=== PATIENT | female | born 1990 | race African-American/Black ===

== ENCOUNTER 2016-06-23 08:43 | Emergency (ER) | payer OTHER ==
[~2016-06-23 08:43] MED LIST: /RANI15TA PO; ANUS2.5C2 TOP; DOCU10ELUD PO; IBUP100SUS PO; MOM30SS PO; TYLE325T5 PO
--- NOTE | 2016-06-23 10:19 | EDDOCDS ---
Nurse's Notes [facility] Name: Dawna Bone Age: 26 yrs Sex: Female : 1990 Arrival Date: 06/23/2016 Time: 08:43 Bed Triage 1 Private MD: Diagnosis: Cutaneous abscess of abdominal wall Presentation: 06/23 09:08 Presenting complaint: Patient states: Pain and redness to left lower pelvic area for 4 dwg days. Adult Sepsis Screening: The patient does not have new or worsening altered mentation. Patient's respiratory rate is less than 22. Systolic blood pressure is greater than 100. Patient has a qSOFA score of 0- Negative Sepsis Screen. Suicide/Homicide risk assessment- the patient denies having any suicidal and/or homicidal ideations and does not present with any other emotional, behavioral or mental health complaints. Status: Patient is not a pharmacy services representative or dependent. Transition of care: patient was not received from another setting of care. 09:08 Acuity: ZANDRA Level 4 [facility] 09:08 Method Of Arrival: Walkin/Carried/Asstd dw 09:08 Presenting complaint: Patient states: States boyfriend is admitted at [facility] yesterday dwg with similar symptoms. Triage Assessment: 09:14 General: Appears in no apparent distress. Pain: Pain currently is 9 out of 10 on a pain [facility] scale. HIV screening NA for this visit Offered previously. 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 none - PMHx: none; - PSHx: none; - Social history: Smoking status: Patient states former smoker of tobacco. No barriers to communication noted, The patient speaks fluent Argentine. - Family history: Not pertinent. - : The pt / caregiver states he / she is not on anticoagulants. Home medication list is obtained from the patient. - Exposure Risk Screening:: None identified. Screenin:17 Screening information is obtained from prior medical records. Fall risk: No risks kcs identified. Assistance ADL's: requires no assistance with activities of daily living. Abuse/DV Screen: The patient / caregiver reports he/she is: not in a situation that causes fear, pain or injury. Nutritional screening: No deficits noted. Advance Directives: Currently, there is no health care proxy. home support is adequate. Assessment: 10:15 Reassessment: Patient states symptoms have improved. General: Appears comfortable, well kcs developed, well nourished, well groomed, Behavior is cooperative, pleasant. Pain: Denies pain. Neurological: Level of Consciousness is awake, alert. Respiratory: Airway is patent Respiratory effort is even, unlabored, Respiratory pattern is regular, symmetrical. Derm: Skin is intact, is healthy with good turgor, Skin is dry, Skin is normal. Vital Signs: 09:14 BP 114 / 66; Pulse 90; Resp 16; Temp 96.9(T); Pulse Ox 99% on R/A; Weight 61.23 kg; dwg Height 5 ft. 4 in. (162.56 cm); Pain 910; 09:14 Body Mass Index 23.17 (61.23 kg, 162.56 cm) [facility] Vitals: 09:14 Log In Time: June 23, 2016 at 08:44. [facility] ED Course: 08:45 Patient visited by Nola Bingham. jp5 08:45 Patient moved to Waiting jp5 09:13 Triage Initiated dwg 09:16 Patient moved to Pre RCE dwg 09:51 Chong Silva PA is PHCP. btw 09:51 Eunice Vega MD is Attending Physician. btw 09:51 Patient visited by Chong Silva PA. btw 09:51 Patient moved to Triage 1 dwg 09:59 [facility] Payment Agreement was scanned into [employer] and attached to record. lg 10:00 Assist provider with I & D: Performed by Chong CULP Culture sent to lab. kcs Dressing with Patient tolerated well. 10:02 Abscess Culture & GS - All Others Sent. nb2 10:03 [facility] is Referral Physician. btw 10:15 The patient / caregiver is instructed regarding the plan of care and ED course. kcs 10:15 No IV's were initiated during this patient's visit. kcs Order Results: There are currently no results for this order. Outcome: 10:00 Discharge Assessment: Patient awake, alert and oriented x 3. No cognitive and/or kcs functional deficits noted. Patient verbalized understanding of disposition instructions. Patient awake and alert. patient administered narcotics - no. The following High Risk Discharge criteria are identified: None. Discharged to home ambulatory. Condition: stable. Discharge instructions given to patient, Instructed on discharge instructions, follow up and referral plans. Use of warm compresses to the affected area, Demonstrated understanding of instructions, Pt was receptive of discharge instructions/ teaching. No special radiology studies were completed. Property sent home with patient. 10:04 Discharge ordered by Provider. btw 10:18 Patient left the ED. kcs Signatures: Angelina Hinojosa RN RN kcs Greene, Daniel, RN RN dwg Ganter, LoriLee, Reg Reg lg Wolfenden, Brandon, PA PA btw Nola Bingham jp5 Sonia Calvert2 ROEL
--- NOTE | 2016-06-23 10:19 | EDDOCDS ---
Physician Documentation [facility] Name: Dawna Bone Age: 26 yrs Sex: Female : 1990 Arrival Date: 06/23/2016 Time: 08:43 Bed Triage 1 Private MD: Disposition: 06/23/16 10:04 Discharged to Home/Self Care. Impression: Cutaneous abscess of abdominal wall. - Condition is Stable. - Discharge Instructions: Incision and Drainage, Abscess, [id number]. - Medication Reconciliation, Local Pharmacy Hours form. - Follow up: [facility]; When: Call to arrange an appointment; Reason: Wound/Symptom Recheck, Further diagnostic work-up, Recheck today's complaints, Continuance of care. - Problem is new. - Symptoms have improved. Historical: - Allergies: no known allergies; - Home Meds: 1. none - PMHx: none; - PSHx: none; - Social history: Smoking status: Patient states former smoker of tobacco. No barriers to communication noted, The patient speaks fluent Omani. - Family history: Not pertinent. - : The pt / caregiver states he / she is not on anticoagulants. Home medication list is obtained from the patient. - Exposure Risk Screening:: None identified. 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 4 in. (162.56 cm); Pain 9/10; 09:14 Body Mass Index 23.17 (61.23 kg, 162.56 cm) dw Procedures: 10:04 I & D: Incision and drainage was performed for an abscess of the left lower quadrant btw Prepped with Betadine, Incised with 18 Gauge needle. Drained moderate amount purulent fluid. Cultures obtained. the patient tolerated the procedure poorly. MDM: 09:54 Financial registration complete. lg 09:59 [facility] Payment Agreement was scanned into [employer] and attached to record. lg 10:01 Abscess Culture & GS - All Others Ordered. EDHI Signatures: Dispatcher [employer] Signature EDHI Angelina Hinjoosa RN RN kcs Greene, Daniel, RN RN amadorg Benigno Soni, Reg Reg lg Chong Silva PA PA btw The chart was reviewed and I authenticate all verbal orders and agree with the evaluation and treatment provided.Attachments: [facility] Payment Agreement lg MTDD
--- NOTE | 2016-06-25 11:19 | EDDOCDS ---
Physician Documentation [facility] Name: Dawna Bone Age: 26 yrs Sex: Female : 1990 Arrival Date: 06/23/2016 Time: 08:43 Bed Triage 1 Private MD: Disposition: 06/23/16 10:04 Discharged to Home/Self Care. Impression: Cutaneous abscess of abdominal wall. - Condition is Stable. - Discharge Instructions: Incision and Drainage, Abscess, [id number]. - Medication Reconciliation, Local Pharmacy Hours form. - Follow up: [facility]; When: Call to arrange an appointment; Reason: Wound/Symptom Recheck, Further diagnostic work-up, Recheck today's complaints, Continuance of care. - Problem is new. - Symptoms have improved. Historical: - Allergies: no known allergies; - Home Meds: 1. none - PMHx: none; - PSHx: none; - Social history: Smoking status: Patient states former smoker of tobacco. No barriers to communication noted, The patient speaks fluent Thai. - Family history: Not pertinent. - : The pt / caregiver states he / she is not on anticoagulants. Home medication list is obtained from the patient. - Exposure Risk Screening:: None identified. 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 4 in. (162.56 cm); Pain 9/10; 09:14 Body Mass Index 23.17 (61.23 kg, 162.56 cm) dw Procedures: 10:04 I & D: Incision and drainage was performed for an abscess of the left lower quadrant btw Prepped with Betadine, Incised with 18 Gauge needle. Drained moderate amount purulent fluid. Cultures obtained. the patient tolerated the procedure poorly. MDM: 09:54 Financial registration complete. lg 09:59 [facility] Payment Agreement was scanned into [employer] and attached to record. lg 10:01 Abscess Culture & GS - All Others Ordered. EDMS 15:06 T-Sheet-- Draft Copy was scanned into [employer] and attached to record. gb Signatures: Dispatcher [employer] Angelina Franco, RN RN Adam Horowitz RN RN dwg Lilliana Wallace, Reg Reg gb Benigno Soni, Reg Reg lg Chong Silva PA PA btw The chart was reviewed and I authenticate all verbal orders and agree with the evaluation and treatment provided.Attachments: 09:59 [facility] Payment Agreement lg 15:06 T-Sheet-- Draft Copy gb Chart Complete MTDD
--- NOTE | 2016-06-25 11:19 | EDDOCDS ---
Physician Documentation [facility] Name: Dawna Bone Age: 26 yrs Sex: Female : 1990 Arrival Date: 06/23/2016 Time: 08:43 Bed Triage 1 Private MD: Disposition: 06/23/16 10:04 Discharged to Home/Self Care. Impression: Cutaneous abscess of abdominal wall. - Condition is Stable. - Discharge Instructions: Incision and Drainage, Abscess, [id number]. - Medication Reconciliation, Local Pharmacy Hours form. - Follow up: [facility]; When: Call to arrange an appointment; Reason: Wound/Symptom Recheck, Further diagnostic work-up, Recheck today's complaints, Continuance of care. - Problem is new. - Symptoms have improved. Historical: - Allergies: no known allergies; - Home Meds: 1. none - PMHx: none; - PSHx: none; - Social history: Smoking status: Patient states former smoker of tobacco. No barriers to communication noted, The patient speaks fluent Namibian. - Family history: Not pertinent. - : The pt / caregiver states he / she is not on anticoagulants. Home medication list is obtained from the patient. - Exposure Risk Screening:: None identified. 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 4 in. (162.56 cm); Pain 9/10; 09:14 Body Mass Index 23.17 (61.23 kg, 162.56 cm) dw Procedures: 10:04 I & D: Incision and drainage was performed for an abscess of the left lower quadrant btw Prepped with Betadine, Incised with 18 Gauge needle. Drained moderate amount purulent fluid. Cultures obtained. the patient tolerated the procedure poorly. MDM: 09:54 Financial registration complete. lg 09:59 [facility] Payment Agreement was scanned into [employer] and attached to record. lg 10:01 Abscess Culture & GS - All Others Ordered. EDMS 15:06 T-Sheet-- Draft Copy was scanned into [employer] and attached to record. gb Signatures: Dispatcher [employer] Angelina Franco, RN RN Adam Horowitz RN RN dwg Lilliana Wallace, Reg Reg gb Benigno Soni, Reg Reg lg Chong Silva PA PA btw The chart was reviewed and I authenticate all verbal orders and agree with the evaluation and treatment provided.Attachments: 09:59 [facility] Payment Agreement lg 15:06 T-Sheet-- Draft Copy gb Chart Complete MTDD
--- NOTE | 2016-06-25 11:19 | EDDOCDS ---
Nurse's Notes [facility] Name: Dawna Bone Age: 26 yrs Sex: Female : 1990 Arrival Date: 06/23/2016 Time: 08:43 Bed Triage 1 Private MD: Diagnosis: Cutaneous abscess of abdominal wall Presentation: 06/23 09:08 Presenting complaint: Patient states: Pain and redness to left lower pelvic area for 4 dwg days. Adult Sepsis Screening: The patient does not have new or worsening altered mentation. Patient's respiratory rate is less than 22. Systolic blood pressure is greater than 100. Patient has a qSOFA score of 0- Negative Sepsis Screen. Suicide/Homicide risk assessment- the patient denies having any suicidal and/or homicidal ideations and does not present with any other emotional, behavioral or mental health complaints. Status: Patient is not a commercial hvac service technician or dependent. Transition of care: patient was not received from another setting of care. 09:08 Acuity: ZANDRA Level 4 [facility] 09:08 Method Of Arrival: Walkin/Carried/Asstd dw 09:08 Presenting complaint: Patient states: States boyfriend is admitted at [facility] yesterday dwg with similar symptoms. Triage Assessment: 09:14 General: Appears in no apparent distress. Pain: Pain currently is 9 out of 10 on a pain [facility] scale. HIV screening NA for this visit Offered previously. 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 none - PMHx: none; - PSHx: none; - Social history: Smoking status: Patient states former smoker of tobacco. No barriers to communication noted, The patient speaks fluent Latvian. - Family history: Not pertinent. - : The pt / caregiver states he / she is not on anticoagulants. Home medication list is obtained from the patient. - Exposure Risk Screening:: None identified. Screenin:17 Screening information is obtained from prior medical records. Fall risk: No risks kcs identified. Assistance ADL's: requires no assistance with activities of daily living. Abuse/DV Screen: The patient / caregiver reports he/she is: not in a situation that causes fear, pain or injury. Nutritional screening: No deficits noted. Advance Directives: Currently, there is no health care proxy. home support is adequate. Assessment: 10:15 Reassessment: Patient states symptoms have improved. General: Appears comfortable, well kcs developed, well nourished, well groomed, Behavior is cooperative, pleasant. Pain: Denies pain. Neurological: Level of Consciousness is awake, alert. Respiratory: Airway is patent Respiratory effort is even, unlabored, Respiratory pattern is regular, symmetrical. Derm: Skin is intact, is healthy with good turgor, Skin is dry, Skin is normal. Vital Signs: 09:14 BP 114 / 66; Pulse 90; Resp 16; Temp 96.9(T); Pulse Ox 99% on R/A; Weight 61.23 kg; dwg Height 5 ft. 4 in. (162.56 cm); Pain 910; 09:14 Body Mass Index 23.17 (61.23 kg, 162.56 cm) [facility] Vitals: 09:14 Log In Time: June 23, 2016 at 08:44. [facility] ED Course: 08:45 Patient visited by Nola Bingham. jp5 08:45 Patient moved to Waiting jp5 09:13 Triage Initiated dwg 09:16 Patient moved to Pre RCE dwg 09:51 Chong Silva PA is PHCP. btw 09:51 Eunice Vega MD is Attending Physician. btw 09:51 Patient visited by Chong Silva PA. btw 09:51 Patient moved to Triage 1 dwg 09:59 [facility] Payment Agreement was scanned into [employer] and attached to record. lg 10:00 Assist provider with I & D: Performed by Chong CULP Culture sent to lab. kcs Dressing with Patient tolerated well. 10:02 Abscess Culture & GS - All Others Sent. nb2 10:03 [facility] is Referral Physician. btw 10:15 The patient / caregiver is instructed regarding the plan of care and ED course. kcs 10:15 No IV's were initiated during this patient's visit. kcs 15:06 T-Sheet-- Draft Copy was scanned into [employer] and attached to record. gb Order Results: Lab Order: Abscess Culture & GS - All Others; SPEC'M 06/23/16 09:59 Test: GRAM STAIN; Value: GRAM STAIN RESULT; Status: F Test: GRAM STAIN; Value: MODERATE WBCS; Status: F Test: GRAM STAIN; Value: MODERATE GRAM POSITIVE COCCI IN PAIRS IN CLUSTERS; Status: F Test: ABSCESS CULTURE; Value: <EXTERNAL COMMENT eCWMed> FULL REPORT IN LAB NOTES (eCW and Medent).; Status: F Test: ABSCESS CULTURE; Value: ORGANISM 1: STAPH.AUREUS METHICILLIN RESIS; Status: F Test: ABSCESS CULTURE; Value: STAPH.AUREUS METHICILLIN RESIS; Status: F Test: ABSCESS CULTURE; Value: QUANTITY OF GROWTH HEAVY; Status: F Test: ABSCESS CULTURE; Value: GRAM POS SENSI - VITEK 67; Status: F Test: ABSCESS CULTURE; Value: Method: VIT2; Status: F Test: ABSCESS CULTURE; Value: TETRACYCLINE <=1 S; Status: F Test: ABSCESS CULTURE; Value: PENICILLIN G >=0.5 R; Status: F Test: ABSCESS CULTURE; Value: TRIMETHOPRIM/SULFAMETHOXAZOLE <=10 S; Status: F Test: ABSCESS CULTURE; Value: ERYTHROMYCIN <=0.25 S; Status: F Test: ABSCESS CULTURE; Value: GENTAMICIN <=0.5 S; Status: F Test: ABSCESS CULTURE; Value: CLINDAMYCIN <=0.25 S; Status: F Test: ABSCESS CULTURE; Value: OXACILLIN >=4 R; Status: F Test: ABSCESS CULTURE; Value: VANCOMYCIN 1 S; Status: F Test: ABSCESS CULTURE; Value: LINEZOLID (ZYVOX) 2 S; Status: F Outcome: 10:00 Discharge Assessment: Patient awake, alert and oriented x 3. No cognitive and/or kcs functional deficits noted. Patient verbalized understanding of disposition instructions. Patient awake and alert. patient administered narcotics - no. The following High Risk Discharge criteria are identified: None. Discharged to home ambulatory. Condition: stable. Discharge instructions given to patient, Instructed on discharge instructions, follow up and referral plans. Use of warm compresses to the affected area, Demonstrated understanding of instructions, Pt was receptive of discharge instructions/ teaching. No special radiology studies were completed. Property sent home with patient. 10:04 Discharge ordered by Provider. btw 10:18 Patient left the ED. kcs Signatures: Angelina Hinojosa RN RN kcs Greene, Daniel, RN RN dwg Lilliana Wallace, Reg Reg gb Benigno Soni, Reg Reg lg Chong Silva PA PA btw Nola Bingham Sonia nb2 Chart Complete MTDD
== END 2016-06-23 10:18 | disposition home or self-care (01) ==
LOC: M ED 08:43
DX: L02.211 Cutaneous abscess of abdominal wall (principal); Z87.891 Personal history of nicotine dependence

== ENCOUNTER 2016-06-25 15:19 | Emergency (ER) | payer OTHER ==
--- NOTE | 2016-06-25 16:00 | EDDOCDS ---
Physician Documentation [facility] Name: Dawna Bone Age: 26 yrs Sex: Female : 1990 Arrival Date: 06/25/2016 Time: 15:19 Bed TR8 Private MD: NO PRIMARY PHYSICIAN, . Disposition: 06/25/16 15:47 Discharged to Home/Self Care. Impression: Cutaneous abscess of abdominal wall - MRSA. - Condition is Stable. - Discharge Instructions: Abscess, MRSA Infection, Adult. - Prescriptions for Doxycycline Hyclate 100 mg Oral Tablet - take 1 tablet by ORAL route every 12 hours; 20 tablet. - Medication Reconciliation form. - Follow up: Private Physician; When: Call to arrange an appointment; Reason: Wound/Symptom Recheck, Recheck today's complaints, Worsening of conditions, Continuance of care. - Problem is an ongoing problem. - Symptoms are unchanged. Historical: - Allergies: no known allergies; - Home Meds: 1. none - PMHx: none; - PSHx: none; - Social history: Smoking status: Patient states was never smoker of tobacco. No barriers to communication noted, The patient speaks fluent Belgian, Speaks appropriately for age. - Family history: Not pertinent. - : The pt / caregiver states he / she is not on anticoagulants. Home medication list is obtained from the patient. - Exposure Risk Screening:: None identified. 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 3 in. (160.02 cm); 15:22 Body Mass Index 23.91 (61.23 kg, 160.02 cm) elp MDM: 15:46 Wound Care ordered. cc10 15:55 Financial registration complete. zo Signatures: Sreedhar Wilson RN RN mlb1 Everette Mckay RosemaryRN RN rs3 Diego Payne PA-C PA-C cc10 MTDD
--- NOTE | 2016-06-25 16:00 | EDDOCDS ---
Nurse's Notes [facility] Name: Dawna Bone Age: 26 yrs Sex: Female : 1990 Arrival Date: 06/25/2016 Time: 15:19 Bed TR8 Private MD: NO PRIMARY PHYSICIAN, . Diagnosis: Cutaneous abscess of abdominal wall-MRSA Presentation: 06/25 15:26 Presenting complaint: Patient states: Abscess to left lower abdomen not improving since mlb1 seen here on . Adult Sepsis Screening: The patient does not have new or worsening altered mentation. Patient's respiratory rate is less than 22. Systolic blood pressure is greater than 100. Patient has a qSOFA score of 0- Negative Sepsis Screen. Suicide/Homicide risk assessment- the patient denies having any suicidal and/or homicidal ideations and does not present with any other emotional, behavioral or mental health complaints. 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 Transition of care: patient was not received from another setting of care. 15:26 Acuity: ZANDRA Level 4 mlb1 15:26 Method Of Arrival: Walkin/Carried/Asstd mlb1 Triage Assessment: 15:27 General: Appears in no apparent distress, Behavior is appropriate for age, cooperative. mlb1 Pain: Location: left lower quadrant Pain currently is 3 out of 10 on a pain scale. HIV screening NA for this visit Offered previously. 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 none - PMHx: none; - PSHx: none; - Social history: Smoking status: Patient states was never smoker of tobacco. No barriers to communication noted, The patient speaks fluent Somali, Speaks appropriately for age. - Family history: Not pertinent. - : The pt / caregiver states he / she is not on anticoagulants. Home medication list is obtained from the patient. - Exposure Risk Screening:: None identified. Screenin:26 Infection Control. mlb1 15:55 Screening information is obtained from the patient. Fall risk: No risks identified. rs3 Assistance ADL's: requires no assistance with activities of daily living. Abuse/DV Screen: The patient / caregiver reports he/she is: not in a situation that causes fear, pain or injury. Nutritional screening: No deficits noted. Advance Directives: Currently, there is no health care proxy. There is no active DNR order. home support is adequate. Vital Signs: 15:22 BP 122 / 69; Pulse 95; Resp 18; Temp 98.6; Pulse Ox 100% ; Weight 61.23 kg; Height 5 elp ft. 3 in. (160.02 cm); 15:22 Body Mass Index 23.91 (61.23 kg, 160.02 cm) elp Vitals: 15:22 Log In Time: June 25, 2016 at 15:20. elp ED Course: 15:20 Patient visited by Sheila Francois PCA. elp 15:20 NO PRIMARY PHYSICIAN, . is Private Physician. elp 15:20 Patient moved to Waiting elp 15:22 Patient moved to Pre RCE elp 15:23 Patient visited by Sheila Francois PCA. elp 15:27 Triage Initiated mlb1 15:31 Patient moved to Triage 1 ck1 15:40 [facility] cc10 15:40 María Farmer MD is Attending Physician. cc10 15:40 Patient visited by Diego Payne PA-C. cc10 15:40 Patient visited by Diego Payne PA-C. cc10 15:55 Patient moved to TR8 rs3 15:58 No IV's were initiated during this patient's visit. No procedures done that require rs3 assistance. 15:59 The patient / caregiver is instructed regarding the plan of care and ED course. rs3 Order Results: There are currently no results for this order. Outcome: 15:47 Discharge ordered by Provider. cc10 15:58 Discharge Assessment: patient administered narcotics - no. The following High Risk rs3 Discharge criteria are identified: None. Discharged to home ambulatory. Condition: stable. Discharge instructions given to patient, Instructed on discharge instructions, follow up and referral plans. medication usage, Demonstrated understanding of instructions, medications, Pt was receptive of discharge instructions/ teaching. Prescriptions given X 1. CT Study completed. Property :Personal belongings accompany Pt. 15:59 Patient left the ED. rs3 Signatures: Sreedhar Wilson RN RN mlb1 Liz Martinez RN RN ck1 Althea Agudelo RN RN rs3 Patchen, Sheila, COMMUTATOR TESTER COMMUTATOR TESTER elp Coniski, Diego, PA-C PA-C cc10 MTDD
--- NOTE | 2016-06-27 16:59 | EDDOCDS ---
Physician Documentation [facility] Name: Dawna Bone Age: 26 yrs Sex: Female : 1990 Arrival Date: 06/25/2016 Time: 15:19 Bed TR8 Private MD: NO PRIMARY PHYSICIAN, . Disposition: 06/25/16 15:47 Discharged to Home/Self Care. Impression: Cutaneous abscess of abdominal wall - MRSA. - Condition is Stable. - Discharge Instructions: Abscess, MRSA Infection, Adult. - Prescriptions for Doxycycline Hyclate 100 mg Oral Tablet - take 1 tablet by ORAL route every 12 hours; 20 tablet. - Medication Reconciliation form. - Follow up: Private Physician; When: Call to arrange an appointment; Reason: Wound/Symptom Recheck, Recheck today's complaints, Worsening of conditions, Continuance of care. - Problem is an ongoing problem. - Symptoms are unchanged. Historical: - Allergies: no known allergies; - Home Meds: 1. none - PMHx: none; - PSHx: none; - Social history: Smoking status: Patient states was never smoker of tobacco. No barriers to communication noted, The patient speaks fluent Ecuadorean, Speaks appropriately for age. - Family history: Not pertinent. - : The pt / caregiver states he / she is not on anticoagulants. Home medication list is obtained from the patient. - Exposure Risk Screening:: None identified. 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 3 in. (160.02 cm); 15:22 Body Mass Index 23.91 (61.23 kg, 160.02 cm) elp MDM: 15:46 Wound Care ordered. cc10 15:55 Financial registration complete. zo 16:00 [facility] Payment Agreement was scanned into [employer] and attached to record. zo 06/26 20:57 T-Sheet-- Draft Copy was scanned into [employer] and attached to record. klr Signatures: Sreedhar Wilson RN RN mlb1 Everette Mckay Rosemary, RN RN rs3 Diego Payne PA-C PAVikC cc10 Miranda Feliciano The chart was reviewed and I authenticate all verbal orders and agree with the evaluation and treatment provided.Attachments: 06/25 16:00 [facility] Payment Agreement zo 06/26 20:57 T-Sheet-- Draft Copy eduardor Chart Complete MTDD
--- NOTE | 2016-06-27 17:00 | EDDOCDS ---
Physician Documentation [facility] Name: Dawna Bone Age: 26 yrs Sex: Female : 1990 Arrival Date: 06/25/2016 Time: 15:19 Bed TR8 Private MD: NO PRIMARY PHYSICIAN, . Disposition: 06/25/16 15:47 Discharged to Home/Self Care. Impression: Cutaneous abscess of abdominal wall - MRSA. - Condition is Stable. - Discharge Instructions: Abscess, MRSA Infection, Adult. - Prescriptions for Doxycycline Hyclate 100 mg Oral Tablet - take 1 tablet by ORAL route every 12 hours; 20 tablet. - Medication Reconciliation form. - Follow up: Private Physician; When: Call to arrange an appointment; Reason: Wound/Symptom Recheck, Recheck today's complaints, Worsening of conditions, Continuance of care. - Problem is an ongoing problem. - Symptoms are unchanged. Historical: - Allergies: no known allergies; - Home Meds: 1. none - PMHx: none; - PSHx: none; - Social history: Smoking status: Patient states was never smoker of tobacco. No barriers to communication noted, The patient speaks fluent American, Speaks appropriately for age. - Family history: Not pertinent. - : The pt / caregiver states he / she is not on anticoagulants. Home medication list is obtained from the patient. - Exposure Risk Screening:: None identified. 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 3 in. (160.02 cm); 15:22 Body Mass Index 23.91 (61.23 kg, 160.02 cm) elp MDM: 15:46 Wound Care ordered. cc10 15:55 Financial registration complete. zo 16:00 [facility] Payment Agreement was scanned into [employer] and attached to record. zo 06/26 20:57 T-Sheet-- Draft Copy was scanned into [employer] and attached to record. klr Signatures: Sreedhar Wilson RN RN mlb1 Everette Mckay Rosemary, RN RN rs3 Diego Payne PA-C PAVikC cc10 Miranda Feliciano The chart was reviewed and I authenticate all verbal orders and agree with the evaluation and treatment provided.Attachments: 06/25 16:00 [facility] [place] Payment Agreement zo 06/26 20:57 T-Sheet-- Draft Copy eduardor Chart Complete MTDD
--- NOTE | 2016-06-27 17:00 | EDDOCDS ---
Nurse's Notes [facility] Name: Dawna Bone Age: 26 yrs Sex: Female : 1990 Arrival Date: 06/25/2016 Time: 15:19 Bed TR8 Private MD: NO PRIMARY PHYSICIAN, . Diagnosis: Cutaneous abscess of abdominal wall-MRSA Presentation: 06/25 15:26 Presenting complaint: Patient states: Abscess to left lower abdomen not improving since mlb1 seen here on . Adult Sepsis Screening: The patient does not have new or worsening altered mentation. Patient's respiratory rate is less than 22. Systolic blood pressure is greater than 100. Patient has a qSOFA score of 0- Negative Sepsis Screen. Suicide/Homicide risk assessment- the patient denies having any suicidal and/or homicidal ideations and does not present with any other emotional, behavioral or mental health complaints. Status: Patient is not a servicer travel trailers or dependent. Transition of care: patient was not received from another setting of care. 15:26 Acuity: ZANDRA Level 4 mlb1 15:26 Method Of Arrival: Walkin/Carried/Asstd mlb1 Triage Assessment: 15:27 General: Appears in no apparent distress, Behavior is appropriate for age, cooperative. mlb1 Pain: Location: left lower quadrant Pain currently is 3 out of 10 on a pain scale. HIV screening NA for this visit Offered previously. 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 none - PMHx: none; - PSHx: none; - Social history: Smoking status: Patient states was never smoker of tobacco. No barriers to communication noted, The patient speaks fluent [place], Speaks appropriately for age. - Family history: Not pertinent. - : The pt / caregiver states he / she is not on anticoagulants. Home medication list is obtained from the patient. - Exposure Risk Screening:: None identified. Screenin:26 Infection Control. mlb1 15:55 Screening information is obtained from the patient. Fall risk: No risks identified. rs3 Assistance ADL's: requires no assistance with activities of daily living. Abuse/DV Screen: The patient / caregiver reports he/she is: not in a situation that causes fear, pain or injury. Nutritional screening: No deficits noted. Advance Directives: Currently, there is no health care proxy. There is no active DNR order. home support is adequate. Vital Signs: 15:22 BP 122 / 69; Pulse 95; Resp 18; Temp 98.6; Pulse Ox 100% ; Weight 61.23 kg; Height 5 elp ft. 3 in. (160.02 cm); 15:22 Body Mass Index 23.91 (61.23 kg, 160.02 cm) elp Vitals: 15:22 Log In Time: June 25, 2016 at 15:20. elp ED Course: 15:20 Patient visited by Sheila Francois PCA. elp 15:20 NO PRIMARY PHYSICIAN, . is Private Physician. elp 15:20 Patient moved to Waiting elp 15:22 Patient moved to Pre RCE elp 15:23 Patient visited by Sheila Francois PCA. elp 15:27 Triage Initiated mlb1 15:31 Patient moved to Triage 1 ck1 15:40 Diego [facility]. cc10 15:40 María Farmer MD is Attending Physician. cc10 15:40 Patient visited by Diego Payne PA-C. cc10 15:40 Patient visited by Diego Payne PA-C. cc10 15:55 Patient moved to TR8 rs3 15:58 No IV's were initiated during this patient's visit. No procedures done that require rs3 assistance. 15:59 The patient / caregiver is instructed regarding the plan of care and ED course. rs3 16:00 [facility] Payment Agreement was scanned into [employer] and attached to record. zo 06/26 20:57 T-Sheet-- Draft Copy was scanned into [employer] and attached to record. klr Order Results: There are currently no results for this order. Outcome: 06/25 15:47 Discharge ordered by Provider. cc10 15:58 Discharge Assessment: patient administered narcotics - no. The following High Risk rs3 Discharge criteria are identified: None. Discharged to home ambulatory. Condition: stable. Discharge instructions given to patient, Instructed on discharge instructions, follow up and referral plans. medication usage, Demonstrated understanding of instructions, medications, Pt was receptive of discharge instructions/ teaching. Prescriptions given X 1. CT Study completed. Property :Personal belongings accompany Pt. 15:59 Patient left the ED. rs3 Signatures: Sreedhar Wilson RN RN mlb1 Liz MartinezRN RN ck1 Everette Mckay RosemaryRN RN rs3 Sheila Francois, WALDO EDI DEVELOPER elp Diego Payne, PA-C PA-C cc10 Miranda Feliciano Chart Complete MTDD
--- NOTE | 2016-06-28 10:34 | EDDOCDS ---
Physician Documentation [facility] Name: Dawna Bone Age: 26 yrs Sex: Female : 1990 Arrival Date: 06/25/2016 Time: 15:19 Bed TR8 Private MD: NO PRIMARY PHYSICIAN, . Disposition: 06/25/16 15:47 Discharged to Home/Self Care. Impression: Cutaneous abscess of abdominal wall - MRSA. - Condition is Stable. - Discharge Instructions: Abscess, MRSA Infection, Adult. - Prescriptions for Doxycycline Hyclate 100 mg Oral Tablet - take 1 tablet by ORAL route every 12 hours; 20 tablet. - Medication Reconciliation form. - Follow up: Private Physician; When: Call to arrange an appointment; Reason: Wound/Symptom Recheck, Recheck today's complaints, Worsening of conditions, Continuance of care. - Problem is an ongoing problem. - Symptoms are unchanged. Historical: - Allergies: no known allergies; - Home Meds: 1. none - PMHx: none; - PSHx: none; - Social history: Smoking status: Patient states was never smoker of tobacco. No barriers to communication noted, The patient speaks fluent Brazilian, Speaks appropriately for age. - Family history: Not pertinent. - : The pt / caregiver states he / she is not on anticoagulants. Home medication list is obtained from the patient. - Exposure Risk Screening:: None identified. 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 3 in. (160.02 cm); 15:22 Body Mass Index 23.91 (61.23 kg, 160.02 cm) elp MDM: 15:46 Wound Care ordered. cc10 15:55 Financial registration complete. zo 16:00 [facility] Payment Agreement was scanned into [employer] and attached to record. zo 06/26 20:57 T-Sheet-- Draft Copy was scanned into [employer] and attached to record. klr Signatures: Sreedhar Wilson RN RN mlb1 Everette Mckay Rosemary, RN RN rs3 Diego Payne PA-C PAVikC cc10 Miranda Feliciano The chart was reviewed and I authenticate all verbal orders and agree with the evaluation and treatment provided.Attachments: 06/25 16:00 [facility] Payment Agreement zo 06/26 20:57 T-Sheet-- Draft Copy eduardor MTDD
--- NOTE | 2016-06-28 10:34 | EDDOCDS ---
Nurse's Notes [facility] Name: Dawna Bone Age: 26 yrs Sex: Female : 1990 Arrival Date: 06/25/2016 Time: 15:19 Bed TR8 Private MD: NO PRIMARY PHYSICIAN, . Diagnosis: Cutaneous abscess of abdominal wall-MRSA Presentation: 06/25 15:26 Presenting complaint: Patient states: Abscess to left lower abdomen not improving since mlb1 seen here on . Adult Sepsis Screening: The patient does not have new or worsening altered mentation. Patient's respiratory rate is less than 22. Systolic blood pressure is greater than 100. Patient has a qSOFA score of 0- Negative Sepsis Screen. Suicide/Homicide risk assessment- the patient denies having any suicidal and/or homicidal ideations and does not present with any other emotional, behavioral or mental health complaints. 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 Transition of care: patient was not received from another setting of care. 15:26 Acuity: ZANDRA Level 4 mlb1 15:26 Method Of Arrival: Walkin/Carried/Asstd mlb1 Triage Assessment: 15:27 General: Appears in no apparent distress, Behavior is appropriate for age, cooperative. mlb1 Pain: Location: left lower quadrant Pain currently is 3 out of 10 on a pain scale. HIV screening NA for this visit Offered previously. 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 none - PMHx: none; - PSHx: none; - Social history: Smoking status: Patient states was never smoker of tobacco. No barriers to communication noted, The patient speaks fluent Zambian, Speaks appropriately for age. - Family history: Not pertinent. - : The pt / caregiver states he / she is not on anticoagulants. Home medication list is obtained from the patient. - Exposure Risk Screening:: None identified. Screenin:26 Infection Control. mlb1 15:55 Screening information is obtained from the patient. Fall risk: No risks identified. rs3 Assistance ADL's: requires no assistance with activities of daily living. Abuse/DV Screen: The patient / caregiver reports he/she is: not in a situation that causes fear, pain or injury. Nutritional screening: No deficits noted. Advance Directives: Currently, there is no health care proxy. There is no active DNR order. home support is adequate. Vital Signs: 15:22 BP 122 / 69; Pulse 95; Resp 18; Temp 98.6; Pulse Ox 100% ; Weight 61.23 kg; Height 5 elp ft. 3 in. (160.02 cm); 15:22 Body Mass Index 23.91 (61.23 kg, 160.02 cm) elp Vitals: 15:22 Log In Time: June 25, 2016 at 15:20. elp ED Course: 15:20 Patient visited by Sheila Francois PCA. elp 15:20 NO PRIMARY PHYSICIAN, . is Private Physician. elp 15:20 Patient moved to Waiting elp 15:22 Patient moved to Pre RCE elp 15:23 Patient visited by Sheila Francois PCA. elp 15:27 Triage Initiated mlb1 15:31 Patient moved to Triage 1 ck1 15:40 Diego [facility] cc10 15:40 María Farmer MD is Attending Physician. cc10 15:40 Patient visited by Diego Payne PA-C. cc10 15:40 Patient visited by Diego Payne PA-C. cc10 15:55 Patient moved to TR8 rs3 15:58 No IV's were initiated during this patient's visit. No procedures done that require rs3 assistance. 15:59 The patient / caregiver is instructed regarding the plan of care and ED course. rs3 16:00 [facility] Payment Agreement was scanned into [employer] and attached to record. zo 06/26 20:57 T-Sheet-- Draft Copy was scanned into [employer] and attached to record. klr Order Results: There are currently no results for this order. Outcome: 06/25 15:47 Discharge ordered by Provider. cc10 15:58 Discharge Assessment: patient administered narcotics - no. The following High Risk rs3 Discharge criteria are identified: None. Discharged to home ambulatory. Condition: stable. Discharge instructions given to patient, Instructed on discharge instructions, follow up and referral plans. medication usage, Demonstrated understanding of instructions, medications, Pt was receptive of discharge instructions/ teaching. Prescriptions given X 1. CT Study completed. Property :Personal belongings accompany Pt. 15:59 Patient left the ED. rs3 Addendum: 06/28/2016 10:21 Narrative: Wound culture results reviewed with Dr. Narayan on 06/25/2016 by Xavier Wagner RN kcs - Charge Nurse - Rx written for Bactrim DS two po BID x 7 days. Message left at patient's home ([phone]) on 06/25 and again this am for patient to call us. Signatures: Angelina Hinojosa, RN RN kcs Sreedhar Wilson RN RN mlb1 Liz MartinezRN RN ck1 Everette Mckay RosemaryRN RN rs3 Sheila Francois, HAND TIRE TRIMMER HAND TIRE TRIMMER elp Diego Payne PA-C PA-C cc10 Miranda Feliciano MTDD
--- NOTE | 2016-06-28 10:34 | EDDOCDS ---
Physician Documentation [facility] Name: Dawna Bone Age: 26 yrs Sex: Female : 1990 Arrival Date: 06/25/2016 Time: 15:19 Bed TR8 Private MD: NO PRIMARY PHYSICIAN, . Disposition: 06/25/16 15:47 Discharged to Home/Self Care. Impression: Cutaneous abscess of abdominal wall - MRSA. - Condition is Stable. - Discharge Instructions: Abscess, MRSA Infection, Adult. - Prescriptions for Doxycycline Hyclate 100 mg Oral Tablet - take 1 tablet by ORAL route every 12 hours; 20 tablet. - Medication Reconciliation form. - Follow up: Private Physician; When: Call to arrange an appointment; Reason: Wound/Symptom Recheck, Recheck today's complaints, Worsening of conditions, Continuance of care. - Problem is an ongoing problem. - Symptoms are unchanged. Historical: - Allergies: no known allergies; - Home Meds: 1. none - PMHx: none; - PSHx: none; - Social history: Smoking status: Patient states was never smoker of tobacco. No barriers to communication noted, The patient speaks fluent French, Speaks appropriately for age. - Family history: Not pertinent. - : The pt / caregiver states he / she is not on anticoagulants. Home medication list is obtained from the patient. - Exposure Risk Screening:: None identified. 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 3 in. (160.02 cm); 15:22 Body Mass Index 23.91 (61.23 kg, 160.02 cm) elp MDM: 15:46 Wound Care ordered. cc10 15:55 Financial registration complete. zo 16:00 [facility] Payment Agreement was scanned into [employer] and attached to record. zo 06/26 20:57 T-Sheet-- Draft Copy was scanned into [employer] and attached to record. klr Signatures: Sreedhar Wilson RN RN mlb1 Everette Mckay Rosemary, RN RN rs3 Diego Payne PA-C PAVikC cc10 Miranda Feliciano The chart was reviewed and I authenticate all verbal orders and agree with the evaluation and treatment provided.Attachments: 06/25 16:00 [facility] [place] zo 06/26 20:57 T-Sheet-- Draft Copy eduardor MTDD
--- NOTE | 2016-06-28 10:35 | EDDOCDS ---
Nurse's Notes [facility] Name: Dawna Bone Age: 26 yrs Sex: Female : 1990 Arrival Date: 06/25/2016 Time: 15:19 Bed TR8 Private MD: NO PRIMARY PHYSICIAN, . Diagnosis: Cutaneous abscess of abdominal wall-MRSA Presentation: 06/25 15:26 Presenting complaint: Patient states: Abscess to left lower abdomen not improving since mlb1 seen here on . Adult Sepsis Screening: The patient does not have new or worsening altered mentation. Patient's respiratory rate is less than 22. Systolic blood pressure is greater than 100. Patient has a qSOFA score of 0- Negative Sepsis Screen. Suicide/Homicide risk assessment- the patient denies having any suicidal and/or homicidal ideations and does not present with any other emotional, behavioral or mental health complaints. Status: Patient is not a parking meter servicer or dependent. Transition of care: patient was not received from another setting of care. 15:26 Acuity: ZANDRA Level 4 mlb1 15:26 Method Of Arrival: Walkin/Carried/Asstd mlb1 Triage Assessment: 15:27 General: Appears in no apparent distress, Behavior is appropriate for age, cooperative. mlb1 Pain: Location: left lower quadrant Pain currently is 3 out of 10 on a pain scale. HIV screening NA for this visit Offered previously. 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 none - PMHx: none; - PSHx: none; - Social history: Smoking status: Patient states was never smoker of tobacco. No barriers to communication noted, The patient speaks fluent Swedish, Speaks appropriately for age. - Family history: Not pertinent. - : The pt / caregiver states he / she is not on anticoagulants. Home medication list is obtained from the patient. - Exposure Risk Screening:: None identified. Screenin:26 Infection Control. mlb1 15:55 Screening information is obtained from the patient. Fall risk: No risks identified. rs3 Assistance ADL's: requires no assistance with activities of daily living. Abuse/DV Screen: The patient / caregiver reports he/she is: not in a situation that causes fear, pain or injury. Nutritional screening: No deficits noted. Advance Directives: Currently, there is no health care proxy. There is no active DNR order. home support is adequate. Vital Signs: 15:22 BP 122 / 69; Pulse 95; Resp 18; Temp 98.6; Pulse Ox 100% ; Weight 61.23 kg; Height 5 elp ft. 3 in. (160.02 cm); 15:22 Body Mass Index 23.91 (61.23 kg, 160.02 cm) elp Vitals: 15:22 Log In Time: June 25, 2016 at 15:20. elp ED Course: 15:20 Patient visited by Sheila Francois PCA. elp 15:20 NO PRIMARY PHYSICIAN, . is Private Physician. elp 15:20 Patient moved to Waiting elp 15:22 Patient moved to Pre RCE elp 15:23 Patient visited by Sheila Francois PCA. elp 15:27 Triage Initiated mlb1 15:31 Patient moved to Triage 1 ck1 15:40 [facility] cc10 15:40 María Farmer MD is Attending Physician. cc10 15:40 Patient visited by Diego Payne PA-C. cc10 15:40 Patient visited by Diego Payne PA-C. cc10 15:55 Patient moved to TR8 rs3 15:58 No IV's were initiated during this patient's visit. No procedures done that require rs3 assistance. 15:59 The patient / caregiver is instructed regarding the plan of care and ED course. rs3 16:00 [facility] Payment Agreement was scanned into [employer] and attached to record. zo 06/26 20:57 T-Sheet-- Draft Copy was scanned into [employer] and attached to record. klr Order Results: There are currently no results for this order. Outcome: 06/25 15:47 Discharge ordered by Provider. cc10 15:58 Discharge Assessment: patient administered narcotics - no. The following High Risk rs3 Discharge criteria are identified: None. Discharged to home ambulatory. Condition: stable. Discharge instructions given to patient, Instructed on discharge instructions, follow up and referral plans. medication usage, Demonstrated understanding of instructions, medications, Pt was receptive of discharge instructions/ teaching. Prescriptions given X 1. CT Study completed. Property :Personal belongings accompany Pt. 15:59 Patient left the ED. rs3 Addendum: 06/28/2016 10:21 Narrative: Wound culture results reviewed with Dr. Narayan on 06/25/2016 by Xavier Wagner RN kcs - Charge Nurse - Rx written for Bactrim DS two po BID x 7 days. Message left at patient's home ([phone]) on 06/25 and again this am for patient to call us. Signatures: Angelina Hinojosa, RN RN kcs Sreedhar Wilson RN RN mlb1 Liz MartinezRN RN ck1 Everette Mckay RosemaryRN RN rs3 Deric Francoisin, WOOD WEB WEAVING MACHINE OPERATOR WOOD WEB WEAVING MACHINE OPERATOR elp Diego Payne PA-C PA-C cc10 Miranda Feliciano Chart Complete MTDD
--- NOTE | 2016-06-28 10:35 | EDDOCDS ---
Physician Documentation [facility] Name: Dawna Bone Age: 26 yrs Sex: Female : 1990 Arrival Date: 06/25/2016 Time: 15:19 Bed TR8 Private MD: NO PRIMARY PHYSICIAN, . Disposition: 06/25/16 15:47 Discharged to Home/Self Care. Impression: Cutaneous abscess of abdominal wall - MRSA. - Condition is Stable. - Discharge Instructions: Abscess, MRSA Infection, Adult. - Prescriptions for Doxycycline Hyclate 100 mg Oral Tablet - take 1 tablet by ORAL route every 12 hours; 20 tablet. - Medication Reconciliation form. - Follow up: Private Physician; When: Call to arrange an appointment; Reason: Wound/Symptom Recheck, Recheck today's complaints, Worsening of conditions, Continuance of care. - Problem is an ongoing problem. - Symptoms are unchanged. Historical: - Allergies: no known allergies; - Home Meds: 1. none - PMHx: none; - PSHx: none; - Social history: Smoking status: Patient states was never smoker of tobacco. No barriers to communication noted, The patient speaks fluent Mosotho, Speaks appropriately for age. - Family history: Not pertinent. - : The pt / caregiver states he / she is not on anticoagulants. Home medication list is obtained from the patient. - Exposure Risk Screening:: None identified. 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 3 in. (160.02 cm); 15:22 Body Mass Index 23.91 (61.23 kg, 160.02 cm) elp MDM: 15:46 Wound Care ordered. cc10 15:55 Financial registration complete. zo 16:00 [facility] Payment Agreement was scanned into [employer] and attached to record. zo 06/26 20:57 T-Sheet-- Draft Copy was scanned into [employer] and attached to record. klr Signatures: Sreedhar Wilson RN RN mlb1 Everette Mckay Rosemary, RN RN rs3 Diego Payne PA-C PAVikC cc10 Miranda Feliciano The chart was reviewed and I authenticate all verbal orders and agree with the evaluation and treatment provided.Attachments: 06/25 16:00 [facility] Payment Agreement zo 06/26 20:57 T-Sheet-- Draft Copy eduardor Chart Complete MTDD
--- NOTE | 2016-06-28 10:35 | EDDOCDS ---
Physician Documentation [facility] Name: Dawna Bone Age: 26 yrs Sex: Female : 1990 Arrival Date: 06/25/2016 Time: 15:19 Bed TR8 Private MD: NO PRIMARY PHYSICIAN, . Disposition: 06/25/16 15:47 Discharged to Home/Self Care. Impression: Cutaneous abscess of abdominal wall - MRSA. - Condition is Stable. - Discharge Instructions: Abscess, MRSA Infection, Adult. - Prescriptions for Doxycycline Hyclate 100 mg Oral Tablet - take 1 tablet by ORAL route every 12 hours; 20 tablet. - Medication Reconciliation form. - Follow up: Private Physician; When: Call to arrange an appointment; Reason: Wound/Symptom Recheck, Recheck today's complaints, Worsening of conditions, Continuance of care. - Problem is an ongoing problem. - Symptoms are unchanged. Historical: - Allergies: no known allergies; - Home Meds: 1. none - PMHx: none; - PSHx: none; - Social history: Smoking status: Patient states was never smoker of tobacco. No barriers to communication noted, The patient speaks fluent Latvian, Speaks appropriately for age. - Family history: Not pertinent. - : The pt / caregiver states he / she is not on anticoagulants. Home medication list is obtained from the patient. - Exposure Risk Screening:: None identified. 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 3 in. (160.02 cm); 15:22 Body Mass Index 23.91 (61.23 kg, 160.02 cm) elp MDM: 15:46 Wound Care ordered. cc10 15:55 Financial registration complete. zo 16:00 [facility] Payment Agreement was scanned into [employer] and attached to record. zo 06/26 20:57 T-Sheet-- Draft Copy was scanned into [employer] and attached to record. klr Signatures: Sreedhar Wilson RN RN mlb1 Everette Mckay Rosemary, RN RN rs3 Diego Payne PA-C PAVikC cc10 Miranda Feliciano The chart was reviewed and I authenticate all verbal orders and agree with the evaluation and treatment provided.Attachments: 06/25 16:00 [facility] Payment Agreement zo 06/26 20:57 T-Sheet-- Draft Copy eduardor Chart Complete MTDD
== END 2016-06-25 15:59 | disposition home or self-care (01) ==
LOC: M ED 15:19 → EEVIPCON 15:19 → M ED 15:59
DX: A49.02 Methicillin resistant Staphylococcus aureus infection, unspecified site (principal); L02.211 Cutaneous abscess of abdominal wall; L03.311 Cellulitis of abdominal wall

== ENCOUNTER → 2016-06-29 | Outpatient (REF) | payer OTHER ==
[2016-06-29 13:24] LABS: MEAN CORPUSCULAR HEMOGLOBIN 29.8 pg (27.0-33.0); MEAN CORPUSCULAR HGB CONC 32.3 g/dl (32.0-36.5); MEAN CORPUSCULAR VOLUME 92.4 fl (80.0-96.0); RED CELL DISTRIBUTION WIDTH 12.6 % (11.5-14.5); WHITE BLOOD COUNT 6.6 K/mm3 (4.0-10.0)
[2016-06-29 14:14] LABS: ANION GAP 9 MEQ/L (8-16); BLOOD UREA NITROGEN 14 MG/DL (7-18); CALCIUM LEVEL 9.1 MG/DL (8.5-10.1); CARBON DIOXIDE LEVEL 27 MEQ/L (21-32); CHLORIDE LEVEL 107 MEQ/L (98-107); CREATININE FOR GFR 0.58 MG/DL (0.55-1.02); GLOMERULAR FILTRATION RATE > 60.0 (>60); GLUCOSE, FASTING 76 MG/DL (70-105); POTASSIUM SERUM 4.2 MEQ/L (3.5-5.1); SODIUM LEVEL 143 MEQ/L (136-145)
[2016-06-29 14:16] LABS: CONTROL LINE INT CTR LINE PRESENT; HIV SCRN NEGATIVE (NEGATIVE); HIV SCRN1 NEGATIVE (NEGATIVE)
== END ==
LOC: M SFHCPLAZ 11:25
PROVIDERS: ATTEND Family Medicine
DX: Z13.0 Encounter for screening for diseases of the blood and blood-forming organs and certain disorders involving the immune mechanism (principal); Z11.3 Encounter for screening for infections with a predominantly sexual mode of transmission; Z13.1 Encounter for screening for diabetes mellitus; Z11.4 Encounter for screening for human immunodeficiency virus [HIV]; Z13.29 Encounter for screening for other suspected endocrine disorder; Z13.21 Encounter for screening for nutritional disorder

== ENCOUNTER → 2016-08-24 | Outpatient (REF) | payer OTHER | LOC: M LAB REF 13:36 | PROVIDERS: ATTEND Student in an Organized Health Care Education/Training Program | DX: Z12.4 Encounter for screening for malignant neoplasm of cervix (principal) ==

== ENCOUNTER 2017-04-22 18:17 | Emergency (ER) | payer MEDICAID, OTHER ==
[~2017-04-22] VITALS: Ht 160 cm; Wt 70.0 kg
[2017-04-22 18:18] VITALS: BP 106/62
[2017-04-22] MEDS ORDERED: IBUP-1022 PO (19:41)
[2017-04-22] MEDS ORDERED: IBUPROFEN 800 MG TAB PO ONE (19:45)
--- NOTE | 2017-04-23 09:01 | REP ---
REASON FOR EXAM: Pain after trauma. PRIORS: None. FINDINGS: No acute fracture or destructive osseous lesion. Signed by Yg Rodriguez DO 04/23/2017 09:31 A
== END 2017-04-22 19:55 | disposition home or self-care (01) ==
LOC: M ED 18:17
DX: M25.531 Pain in right wrist (principal); F32.9 Major depressive disorder, single episode, unspecified

== ENCOUNTER → 2017-11-29 | Outpatient (REF) | payer OTHER ==
[2017-11-29 18:30] LABS: AMORPHOUS SEDIMENT SMALL (NEGATIVE); APPEARANCE, URINE HAZY (CLEAR); BACTERIA, URINE AUTO NEGATIVE (NEGATIVE); BILIRUBIN, URINE AUTO NEGATIVE (NEGATIVE); BLOOD, URINE BLOOD NEGATIVE (NEGATIVE); COLOR, URINE YELLOW (YELLOW); GLUCOSE, URINE (UA) AUTO NEGATIVE (NEGATIVE); KETONE, URINE AUTO NEGATIVE (NEGATIVE); LEUKOCYTE ESTERASE, URINE AUTO NEGATIVE (NEGATIVE); MUCUS, URINE SMALL (NEGATIVE); NITRITE, URINE AUTO NEGATIVE (NEGATIVE); PROTEIN, URINE AUTO NEGATIVE (NEGATIVE); RBC, URINE AUTO 1 /HPF (0-3); SPECIFIC GRAVITY URINE AUTO 1.026 (1.002-1.035); SQUAMOUS EPITHELIAL CELL UR AU 6 /HPF (0-6); TRIPLE PHOSPHATE CRYSTALS SMALL; WBC, URINE AUTO 2 /HPF (0-3)
== END ==
LOC: M LAB REF 17:07
DX: N39.0 Urinary tract infection, site not specified (principal)
CPT/HCPCS: 81001

== ENCOUNTER → 2017-12-11 | Outpatient (REF) | payer OTHER ==
[2017-12-11 18:07] LABS: CHLAMYDIA DNA AMPLIFICATION NEGATIVE (NEGATIVE); GC DNA AMPLIFICATION NEGATIVE (NEGATIVE)
== END ==
LOC: M SFHCWAGY 16:02
DX: Z20.2 Contact with and (suspected) exposure to infections with a predominantly sexual mode of transmission (principal)

== ENCOUNTER → 2017-12-15 | Outpatient (CLI) | payer OTHER | LOC: M RAD 12:15 | DX: R93.5 Abnormal findings on diagnostic imaging of other abdominal regions, including retroperitoneum (principal) | CPT/HCPCS: 76856 ==

== ENCOUNTER 2018-01-16 09:36 | Emergency (ER) | payer OTHER ==
[2018-01-16 11:31] LABS: BASO # 0.1 10^3/uL (0.0-0.2); BASO % 0.8 % (0.0-1.0); EOS # 0.1 10^3/uL (0.0-0.50); EOS % 0.8 % (0.0-3.0); HEMATOCRIT 36.6 % (36.0-47.0); HEMOGLOBIN 11.9 g/dl (12.0-15.5); IMMATURE GRANULOCYTE % 0.6 % (0-3.0); LYMPH # 1.9 10^3/uL (1.5-6.5); LYMPH % 22.6 % (24.0-44.0); MEAN CORPUSCULAR HEMOGLOBIN 30.4 pg (27.0-33.0); MEAN CORPUSCULAR HGB CONC 32.5 g/dl (32.0-36.5); MEAN CORPUSCULAR VOLUME 93.6 fl (80.0-96.0); MONO # 0.5 10^3/uL (0.0-0.8); MONO % 5.7 % (0.0-5.0); NEUTROPHILS # 5.8 10^3/uL (1.8-7.7); NEUTROPHILS % 69.5 % (36.0-66.0); PLATELET COUNT, AUTOMATED 186 10^3/uL (150-450); RED BLOOD COUNT 3.91 10^6/uL (4.00-5.40); RED CELL DISTRIBUTION WIDTH 13.6 % (11.5-14.5); WHITE BLOOD COUNT 8.4 10^3/uL (4.0-10.0)
[2018-01-16 11:33] LABS: INR 1.02; PROTHROMBIN TIME 13.5 SECONDS (12.1-14.4)
[2018-01-16 11:37] LABS: CONTROL LINE HCG INT CTR LINE PRESENT; HCG, SERUM QUALITATIVE POSITIVE (NEGATIVE)
[2018-01-16 11:42] LABS: POSITIVE MORPH POS FLAG
[2018-01-16 11:51] LABS: ANION GAP 8 MEQ/L (8-16); BLOOD UREA NITROGEN 9 MG/DL (7-18); CALCIUM LEVEL 8.9 MG/DL (8.5-10.1); CARBON DIOXIDE LEVEL 24 MEQ/L (21-32); CHLORIDE LEVEL 112 MEQ/L (98-107); CREATININE FOR GFR 0.59 MG/DL (0.55-1.30); GLOMERULAR FILTRATION RATE > 60.0 (>60); GLUCOSE, FASTING 73 MG/DL (70-100); HCG, SERUM QUANTITATIVE 382 MIU/ML; POTASSIUM SERUM 4.2 MEQ/L (3.5-5.1); SODIUM LEVEL 144 MEQ/L (136-145)
[2018-01-16 12:11] LABS: APPEARANCE, URINE HAZY (CLEAR); BACTERIA, URINE AUTO 1+ (NEGATIVE); BILIRUBIN, URINE AUTO NEGATIVE (NEGATIVE); BLOOD, URINE BLOOD 3+ (NEGATIVE); COLOR, URINE YELLOW (YELLOW); GLUCOSE, URINE (UA) AUTO NEGATIVE (NEGATIVE); KETONE, URINE AUTO NEGATIVE (NEGATIVE); LEUKOCYTE ESTERASE, URINE AUTO NEGATIVE (NEGATIVE); MUCUS, URINE SMALL (NEGATIVE); NITRITE, URINE AUTO NEGATIVE (NEGATIVE); PROTEIN, URINE AUTO NEGATIVE (NEGATIVE); RBC, URINE AUTO 4 /HPF (0-3); SPECIFIC GRAVITY URINE AUTO 1.027 (1.002-1.035); SQUAMOUS EPITHELIAL CELL UR AU 4 /HPF (0-6); WBC, URINE AUTO 5 /HPF (0-3)
[2018-01-16 14:08] LABS: CHLAMYDIA DNA AMPLIFICATION NEGATIVE (NEGATIVE); GC DNA AMPLIFICATION NEGATIVE (NEGATIVE)
== END 2018-01-16 14:47 | disposition home or self-care (01) ==
LOC: M ED 09:36
DX: O20.9 Hemorrhage in early pregnancy, unspecified (principal); Z3A.01 Less than 8 weeks gestation of pregnancy
CPT/HCPCS: 76801

== ENCOUNTER → 2018-01-18 | Outpatient (CLI) | payer OTHER ==
[2018-01-18 14:43] LABS: HCG, SERUM QUANTITATIVE 115 MIU/ML
== END ==
LOC: M LAB 13:32
DX: O20.0 Threatened abortion (principal); Z3A.00 Weeks of gestation of pregnancy not specified
CPT/HCPCS: 84702

== ENCOUNTER 2018-01-19 16:49 | Emergency (ER) | payer OTHER ==
[2018-01-19 17:53] LABS: MEAN CORPUSCULAR HEMOGLOBIN 29.9 pg (27.0-33.0); MEAN CORPUSCULAR HGB CONC 32.5 g/dl (32.0-36.5); PLATELET COUNT, AUTOMATED 195 10^3/uL (150-450); RED BLOOD COUNT 4.35 10^6/uL (4.00-5.40); RED CELL DISTRIBUTION WIDTH 13.2 % (11.5-14.5); WHITE BLOOD COUNT 9.4 10^3/uL (4.0-10.0)
[2018-01-19 17:58] LABS: APPEARANCE, URINE HAZY (CLEAR); BACTERIA, URINE AUTO 1+ (NEGATIVE); BILIRUBIN, URINE AUTO NEGATIVE (NEGATIVE); BLOOD, URINE BLOOD 3+ (NEGATIVE); COLOR, URINE YELLOW (YELLOW); GLUCOSE, URINE (UA) AUTO NEGATIVE (NEGATIVE); KETONE, URINE AUTO NEGATIVE (NEGATIVE); LEUKOCYTE ESTERASE, URINE AUTO NEGATIVE (NEGATIVE); MUCUS, URINE SMALL (NEGATIVE); NITRITE, URINE AUTO NEGATIVE (NEGATIVE); PROTEIN, URINE AUTO 1+ mg/dL (NEGATIVE); RBC, URINE AUTO TNTC /HPF (0-3); SPECIFIC GRAVITY URINE AUTO 1.024 (1.002-1.035); SQUAMOUS EPITHELIAL CELL UR AU 2 /HPF (0-6); UROBILINOGEN, URINE AUTO 0.2 mg/dL (0.0-2.0); WBC, URINE AUTO 8 /HPF (0-3)
== END 2018-01-19 18:15 | disposition home or self-care (01) ==
LOC: M ED 16:49
DX: O03.9 Complete or unspecified spontaneous abortion without complication (principal); O99.331 Smoking (tobacco) complicating pregnancy, first trimester; F17.200 Nicotine dependence, unspecified, uncomplicated
CPT/HCPCS: 85027

== ENCOUNTER → 2018-01-22 | Outpatient (CLI) | payer OTHER ==
[2018-01-23 00:19] LABS: HCG, SERUM QUANTITATIVE 213 MIU/ML
== END ==
LOC: M LAB 15:48
DX: O20.0 Threatened abortion (principal); Z3A.00 Weeks of gestation of pregnancy not specified
CPT/HCPCS: 84702

== ENCOUNTER → 2018-01-23 | Outpatient (CLI) | payer OTHER ==
[2018-01-23 14:16] LABS: HCG, SERUM QUANTITATIVE 219 MIU/ML
== END ==
LOC: M SMT 11:03
DX: O00.80 Other ectopic pregnancy without intrauterine pregnancy (principal)
CPT/HCPCS: 84702

== ENCOUNTER → 2018-01-24 | Outpatient (CLI) | payer OTHER ==
[2018-01-24 11:55] LABS: BASO # 0.1 10^3/uL (0.0-0.2); BASO % 0.6 % (0.0-1.0); EOS # 0.1 10^3/uL (0.0-0.50); EOS % 0.8 % (0.0-3.0); HEMATOCRIT 38.1 % (36.0-47.0); HEMOGLOBIN 12.4 g/dl (12.0-15.5); IMMATURE GRANULOCYTE % 0.2 % (0-3.0); LYMPH # 2.3 10^3/uL (1.5-6.5); LYMPH % 26.7 % (24.0-44.0); MEAN CORPUSCULAR HGB CONC 32.5 g/dl (32.0-36.5); MEAN CORPUSCULAR VOLUME 92.3 fl (80.0-96.0); MONO # 0.6 10^3/uL (0.0-0.8); MONO % 6.9 % (0.0-5.0); NEUTROPHILS # 5.5 10^3/uL (1.8-7.7); NEUTROPHILS % 64.8 % (36.0-66.0); PLATELET COUNT, AUTOMATED 177 10^3/uL (150-450); RED BLOOD COUNT 4.13 10^6/uL (4.00-5.40); RED CELL DISTRIBUTION WIDTH 13.2 % (11.5-14.5); WHITE BLOOD COUNT 8.6 10^3/uL (4.0-10.0)
[2018-01-24 12:48] LABS: ALBUMIN/GLOBULIN RATIO 1.08 (1.00-1.93); ALKALINE PHOSPHATASE 70 U/L (45-117); ALT/SGPT 23 U/L (12-78); ANION GAP 3 MEQ/L (8-16); AST/SGOT 13 U/L (7-37); BILIRUBIN,TOTAL 0.4 MG/DL (0.2-1.0); BLOOD UREA NITROGEN 10 MG/DL (7-18); CALCIUM LEVEL 9.1 MG/DL (8.5-10.1); CARBON DIOXIDE LEVEL 30 MEQ/L (21-32); CHLORIDE LEVEL 105 MEQ/L (98-107); CREATININE FOR GFR 0.57 MG/DL (0.55-1.30); GLOMERULAR FILTRATION RATE > 60.0 (>60); GLUCOSE, FASTING 76 MG/DL (70-100); HCG, SERUM QUANTITATIVE 158 MIU/ML; POTASSIUM SERUM 4.4 MEQ/L (3.5-5.1); SODIUM LEVEL 138 MEQ/L (136-145); TOTAL PROTEIN 7.7 GM/DL (6.4-8.2)
== END ==
LOC: M LAB 11:06
DX: O00.80 Other ectopic pregnancy without intrauterine pregnancy (principal); Z3A.00 Weeks of gestation of pregnancy not specified
CPT/HCPCS: 80053

== ENCOUNTER → 2018-01-27 | Outpatient (CLI) | payer OTHER ==
[2018-01-27 15:08] LABS: HCG, SERUM QUANTITATIVE 71 MIU/ML
== END ==
LOC: M LAB 14:15
DX: O00.80 Other ectopic pregnancy without intrauterine pregnancy (principal); Z3A.00 Weeks of gestation of pregnancy not specified
CPT/HCPCS: 84702

== ENCOUNTER → 2018-01-30 | Outpatient (CLI) | payer OTHER ==
[2018-01-30 08:50] LABS: HCG, SERUM QUANTITATIVE 57 MIU/ML
== END ==
LOC: M LAB 07:27
DX: O00.80 Other ectopic pregnancy without intrauterine pregnancy (principal); Z3A.00 Weeks of gestation of pregnancy not specified
CPT/HCPCS: 84702

== ENCOUNTER → 2018-02-06 | Outpatient (CLI) | payer OTHER ==
[2018-02-06 19:37] LABS: HCG, SERUM QUANTITATIVE 9 MIU/ML
== END ==
LOC: M LAB 16:59
DX: N93.8 Other specified abnormal uterine and vaginal bleeding (principal)
CPT/HCPCS: 84702

== ENCOUNTER 2018-05-15 18:39 | Emergency (ER) | payer OTHER ==
[~2018-05-15] VITALS: Ht 160 cm; Wt 68.2 kg
[~2018-05-15 18:39] MED LIST changes: +IBUP-1022 PO
[2018-05-15] MEDS ORDERED: ROBI1CAP PO (18:44)
[2018-05-15 20:17] LABS: INFLUENZA A AMPLIFICATION NEGATIVE (NEGATIVE); INFLUENZA B AMPLIFICATION NEGATIVE (NEGATIVE)
[2018-05-15] MEDS ORDERED: TESS100C PO (20:50)
[2018-05-15] MEDS ORDERED: PENI500T PO (20:50)
[2018-05-15 20:54] VITALS: BP 108/65
[2018-05-15] MEDS ORDERED: BENZONATATE 100 MG CAP PO ONE (21:00)
[2018-05-15] MEDS ORDERED: PENICILLIN V POTASSIUM 500 MG TAB PO ONE (21:00)
== END 2018-05-15 21:05 | disposition home or self-care (01) ==
LOC: M ED 18:39
DX: J02.0 Streptococcal pharyngitis (principal); J40 Bronchitis, not specified as acute or chronic; F41.9 Anxiety disorder, unspecified

== ENCOUNTER → 2018-08-22 | Outpatient (CLI) | payer OTHER ==
[~2018-08-22] MED LIST changes: -/RANI15TA PO; -DOCU10ELUD PO; +DOCU5LIQ PO; +IBUP100S44 PO; -IBUP100SUS PO; +PENI500T PO; +RANI1TAB17 PO; +ROBI1CAP PO; +TESS100C PO
== END ==
LOC: M RAD 15:23
PROVIDERS: ATTEND Physician Assistant
DX: Z53.9 Procedure and treatment not carried out, unspecified reason (principal)

== ENCOUNTER → 2018-08-22 | Outpatient (REF) | payer OTHER ==
[2018-08-22 15:44] LABS: APPEARANCE, URINE HAZY (CLEAR); BACTERIA, URINE AUTO NEGATIVE (NEGATIVE); BILIRUBIN, URINE AUTO NEGATIVE (NEGATIVE); BLOOD, URINE BLOOD NEGATIVE (NEGATIVE); COLOR, URINE YELLOW (YELLOW); GLUCOSE, URINE (UA) AUTO NEGATIVE (NEGATIVE); KETONE, URINE AUTO TRACE mg/dL (NEGATIVE); LEUKOCYTE ESTERASE, URINE AUTO NEGATIVE (NEGATIVE); MUCUS, URINE MODERATE (NEGATIVE); NITRITE, URINE AUTO NEGATIVE (NEGATIVE); PROTEIN, URINE AUTO NEGATIVE (NEGATIVE); RBC, URINE AUTO 0 /HPF (0-3); SPECIFIC GRAVITY URINE AUTO 1.033 (1.002-1.035); SQUAMOUS EPITHELIAL CELL UR AU 9 /HPF (0-6); WBC, URINE AUTO 1 /HPF (0-3)
[2018-08-22 17:08] LABS: CHLAMYDIA DNA AMPLIFICATION NEGATIVE (NEGATIVE); GC DNA AMPLIFICATION NEGATIVE (NEGATIVE)
== END ==
LOC: M LAB REF 15:12
PROVIDERS: ATTEND Physician Assistant
DX: N39.0 Urinary tract infection, site not specified (principal)

== ENCOUNTER → 2018-09-13 | Outpatient (CLI) | payer OTHER ==
[~2018-09-13] MED LIST changes: +GASTROGRAFIN SOLUTION 30ML (Q9963) As Ordered ONE; +ISOVUE-370 76% 100ML VIAL (Q9967) As Ordered ONE
[2018-09-13 11:48] LABS: BASO # 0.1 10^3/uL (0.0-0.2); BASO % 0.6 % (0.0-1.0); EOS # 0.1 10^3/uL (0.0-0.50); EOS % 0.9 % (0.0-3.0); HEMATOCRIT 40.2 % (36.0-47.0); HEMOGLOBIN 12.9 g/dl (12.0-15.5); LYMPH # 2.2 10^3/uL (1.5-6.5); MEAN CORPUSCULAR HEMOGLOBIN 29.9 pg (27.0-33.0); MEAN CORPUSCULAR HGB CONC 32.1 g/dl (32.0-36.5); MEAN CORPUSCULAR VOLUME 93.3 fl (80.0-96.0); MONO # 0.7 10^3/uL (0.0-0.8); MONO % 6.2 % (0.0-5.0); NEUTROPHILS # 8.5 10^3/uL (1.8-7.7); NEUTROPHILS % 72.9 % (36.0-66.0); PLATELET COUNT, AUTOMATED 183 10^3/uL (150-450); RED BLOOD COUNT 4.31 10^6/uL (4.00-5.40); WHITE BLOOD COUNT 11.6 10^3/uL (4.0-10.0)
[2018-09-13 12:12] LABS: ERYTHROCYTE SEDIMENTATION RATE 9 mm/hr (0-20)
[2018-09-13 12:19] LABS: ALBUMIN 3.8 GM/DL (3.2-5.2); ALT/SGPT 16 U/L (12-78); BILIRUBIN,TOTAL 0.4 MG/DL (0.2-1.0); BLOOD UREA NITROGEN 12 MG/DL (7-18); CALCIUM LEVEL 9.1 MG/DL (8.5-10.1); CARBON DIOXIDE LEVEL 30 MEQ/L (21-32); CHLORIDE LEVEL 109 MEQ/L (98-107); CREATININE FOR GFR 0.61 MG/DL (0.55-1.30); GLOMERULAR FILTRATION RATE > 60.0 (>60); GLUCOSE, FASTING 83 MG/DL (70-100); POTASSIUM SERUM 4.5 MEQ/L (3.5-5.1); SODIUM LEVEL 142 MEQ/L (136-145); TOTAL PROTEIN 7.4 GM/DL (6.4-8.2)
[2018-09-13 12:28] LABS: HCG, SERUM QUALITATIVE NEGATIVE (NEGATIVE)
--- NOTE | 2018-09-13 13:57 | REP ---
CT ABDOMEN AND PELVIS WITH ORAL AND IV CONTRAST: TECHNIQUE: Axial contrast enhanced images from the lung bases to the pubic symphysis using 100 mL Isovue 370 intravenous contrast material with multiplanar reformations. Visualized lung bases are clear. In the liver, in the right lobe near the inferior vena cava, is an oval-enhancing nodule, which is mildly heterogeneous. It measures 3 x 2 cm. More inferiorly in the right lobe of the liver, there is a 9 mm enhancing nodule. The spleen, adrenals, pancreas and kidneys are unremarkable. There is no abdominal aortic aneurysm. There is no adenopathy. There if no free air or free fluid. I see no bowel wall thickening. I do not see evidence of appendicitis. I cannot identify an appendix but no dilated inflamed appendix is seen. No pelvic mass is seen. Urinary bladder is collapsed and not evaluated. IMPRESSION: No acute findings. Two enhancing nodules in the liver. The larger of the two measures 3 x 2 cm, located in the right lobe of the liver along the inferior vena cava. Given the patient's age, these probably represent hemangiomas or adenomas. These may be further characterized by dedicated MRI of the liver with and without contrast. Electronically Signed by Adam Alvarado MD 09/14/2018 12:19 P
== END ==
LOC: M LAB 11:22
PROVIDERS: ATTEND Nurse Practitioner
DX: K76.89 Other specified diseases of liver (principal)
CPT/HCPCS: 36415; 74177; 80053; 84703; 85025; 85652; Q9963; Q9967

== ENCOUNTER 2018-11-28 11:02 | Emergency (ER) | payer OTHER ==
[~2018-11-28] VITALS: Ht 160 cm; Wt 66.8 kg
[~2018-11-28 11:02] MED LIST changes: -GASTROGRAFIN SOLUTION 30ML (Q9963) As Ordered ONE; -ISOVUE-370 76% 100ML VIAL (Q9967) As Ordered ONE
[2018-11-28] MEDS ORDERED: PREN1CHW6 PO (11:09)
[2018-11-28 11:38] LABS: BASO # 0.1 10^3/uL (0.0-0.2); BASO % 0.7 % (0.0-1.0); EOS # 0.1 10^3/uL (0.0-0.50); EOS % 1.5 % (0.0-3.0); HEMATOCRIT 40.1 % (36.0-47.0); HEMOGLOBIN 12.9 g/dl (12.0-15.5); MEAN CORPUSCULAR HEMOGLOBIN 30.1 pg (27.0-33.0); MEAN CORPUSCULAR HGB CONC 32.2 g/dl (32.0-36.5); MEAN CORPUSCULAR VOLUME 93.7 fl (80.0-96.0); MONO # 0.5 10^3/uL (0.0-0.8); MONO % 5.6 % (0.0-5.0); NEUTROPHILS # 5.9 10^3/uL (1.8-7.7); NEUTROPHILS % 68.7 % (36.0-66.0); PLATELET COUNT, AUTOMATED 172 10^3/uL (150-450); RED BLOOD COUNT 4.28 10^6/uL (4.00-5.40); WHITE BLOOD COUNT 8.6 10^3/uL (4.0-10.0)
[2018-11-28 12:25] LABS: BLOOD UREA NITROGEN 9 MG/DL (7-18); CALCIUM LEVEL 8.9 MG/DL (8.5-10.1); CARBON DIOXIDE LEVEL 28 MEQ/L (21-32); CHLORIDE LEVEL 108 MEQ/L (98-107); CREATININE FOR GFR 0.64 MG/DL (0.55-1.30); GLOMERULAR FILTRATION RATE > 60.0 (>60); GLUCOSE, FASTING 86 MG/DL (70-100); HCG, SERUM QUANTITATIVE 60 MIU/ML; POTASSIUM SERUM 4.1 MEQ/L (3.5-5.1); SODIUM LEVEL 142 MEQ/L (136-145)
--- NOTE | 2018-11-28 14:29 | REP ---
PELVIC ULTRASOUND: Real-time sonographic evaluation of the pelvis is performed utilizing transabdominal and endovaginal technique. Urinary bladder is collapsed. Uterus measures 8.4 x 4.1 x 5.9 cm. Endometrial thickness is 3 mm. No gestational sac is seen in the endometrial canal. There is no endometrial fluid collection. The ovaries are normal in size and echotexture, right ovary measuring 3.3 x 1.8 x 3.2 cm and the left ovary 2.3 x 1.4 x 2.7 cm. There is no adnexal mass or free fluid. There is no evidence of ovarian torsion. Suggest correlation with serial quantitative beta hCG values in order to differentiate between missed , early intrauterine or ectopic . Electronically Signed by Adam Alvarado MD 12/01/2018 06:28 P
[2018-11-28 15:13] VITALS: BP 111/63
== END 2018-11-28 15:15 | disposition home or self-care (01) ==
LOC: M ED 11:02
DX: O20.0 Threatened abortion (principal); O26.899 Other specified pregnancy related conditions, unspecified trimester; O20.8 Other hemorrhage in early pregnancy; Z87.59 Personal history of other complications of pregnancy, childbirth and the puerperium; O99.330 Smoking (tobacco) complicating pregnancy, unspecified trimester; Z79.899 Other long term (current) drug therapy

== ENCOUNTER → 2018-11-30 | Outpatient (CLI) | payer OTHER ==
[~2018-11-30] MED LIST changes: +PREN1CHW6 PO
== END ==
LOC: M LAB 16:33
PROVIDERS: ATTEND Physician Assistant
DX: Z32.00 Encounter for pregnancy test, result unknown (principal); Z3A.00 Weeks of gestation of pregnancy not specified

== ENCOUNTER → 2019-02-07 | Outpatient (CLI) | payer OTHER ==
[2019-02-07 12:52] LABS: BASO # 0.1 10^3/uL (0.0-0.2); BASO % 0.9 % (0.0-1.0); EOS # 0.1 10^3/uL (0.0-0.5); EOS % 1.8 % (0.0-3.0); HEMATOCRIT 42.1 % (36.0-47.0); HEMOGLOBIN 13.5 g/dl (12.0-15.5); LYMPH # 2.3 10^3/uL (1.5-5.0); LYMPH % 31.3 % (24.0-44.0); MEAN CORPUSCULAR HEMOGLOBIN 30.5 pg (27.0-33.0); MEAN CORPUSCULAR HGB CONC 32.1 g/dl (32.0-36.5); MONO # 0.5 10^3/uL (0.0-0.8); MONO % 7.2 % (0.0-5.0); NEUTROPHILS # 4.3 10^3/uL (1.5-8.5); NEUTROPHILS % 58.5 % (36.0-66.0); PLATELET COUNT, AUTOMATED 184 10^3/uL (150-450); RED BLOOD COUNT 4.43 10^6/uL (4.00-5.40); WHITE BLOOD COUNT 7.4 10^3/uL (4.0-10.0)
[2019-02-07 13:39] LABS: ALBUMIN 4.1 GM/DL (3.2-5.2); ALT/SGPT 18 U/L (12-78); BILIRUBIN,DIRECT 0.1 MG/DL (0.0-0.2); BILIRUBIN,TOTAL 0.4 MG/DL (0.2-1.0); TOTAL PROTEIN 7.5 GM/DL (6.4-8.2)
[2019-02-07 13:57] LABS: H PYLORI QUALITATIVE IgG NEGATIVE (NEGATIVE)
[2019-02-08 11:10] LABS: HEPATITIS B SURFACE ANTIBODY POSITIVE (POSITIVE)
[2019-02-08 11:20] LABS: HEPATITIS B SURFACE ANTIGEN NEGATIVE (NEGATIVE)
[2019-02-08 11:48] LABS: HEPATITIS C VIRUS ABY INDEX 0.1 INDEX (<0.8)
[2019-02-09 08:06] LABS: IGASUB2 164.2 mg/dL (73.2-301.2); IGASUB3 27.8 mg/dL (13.4-97.9); IgA SERUM (part of Subclasses) 222 mg/dL (87-352); TISSUE TRANSGLUTAMINASE IgA <2 U/mL (0-3)
== END ==
LOC: M LAB 11:53
PROVIDERS: ATTEND Internal Medicine Gastroenterology
DX: K76.89 Other specified diseases of liver (principal)

== ENCOUNTER → 2019-02-15 | Outpatient (CLI) | payer OTHER ==
--- NOTE | 2019-02-15 12:19 | REP ---
REASON FOR EXAM: Abdominal pain. Patient has known hepatic lesions. Previously imaged with CT and MRI. All interested parties should review those reports. Multiple ultrasonographic images of the liver again show two solid atypical hepatic lesions, one in the right lobe of the liver measuring 2.7 x 1.9 x 2.8 cm and the other also in the right lobe of the liver measuring 1.7 x 1.2 x 1.4 cm. There is no evidence of intrahepatic or extrahepatic ductal dilatation. The common bile duct measures between 3 and 4 mm. Multiple ultrasonographic images of the gallbladder show no evidence of abnormal gallbladder wall thickening, pericholecystic edema, or choleliths. The imaged portions of the pancreas is within normal limits. The spleen has a maximal dimension of the 8.3 cm which is within normal limits. No splenic or perisplenic abnormality is noted. The right kidney measures 11.2 x 4.2 x 3.6 cm and is within normal limits. There are no cystic or solid masses. There is no hydronephrosis. The renal cortical echoes are within normal limits and corticomedullary differentiation is preserved. Left kidney measures 11.0 x 4.8 x 5.5 cm. It is within normal limits. The renal cortical echoes are within normal limits and corticomedullary differentiation is preserved. There are no cystic or solid masses. There is no hydronephrosis. The imaged portion of the abdominal aorta is within normal limits. No free fluid is seen within the abdomen. IMPRESSION: There are two hepatic lesions as described above. I recommend that all interested parties review the MRI of the liver report made 10/31/[address] examination of the abdomen report made 09/13/2018 since recommendation for followup of the abnormalities has been made per those reports. Those lesions are much better imaged using those modalities rather than ultrasound. Electronically Signed by Yg Rodriguez DO 02/15/2019 02:03 P
== END ==
LOC: M RAD 09:09
PROVIDERS: ATTEND Internal Medicine Gastroenterology
DX: R10.2 Pelvic and perineal pain (principal); R10.31 Right lower quadrant pain; K76.89 Other specified diseases of liver

== ENCOUNTER → 2019-02-18 | Outpatient (CLI) | payer OTHER ==
--- NOTE | 2019-02-18 11:31 | REP ---
PELVIC ULTRASOUND: Real-time sonographic evaluation of the pelvis is performed utilizing transabdominal and endovaginal technique. Urinary bladder is collapsed. The appendix could not be visualized. Uterus measures 10.3 x 4.1 x 5.8 cm. Endometrial thickness is 9 mm. Trace fluid is seen in the cervical canal. Right ovary measures 4.1 x 2.8 x 3.3 cm. There is a cystic structure with multiple septation in the right ovary, measuring 2.0 x 2.1 x 2.2 cm. This may represent dominant follicle. The left ovary measures 2.7 x 1.6 x 1.8 cm. There is no torsion or free fluid. Resistive index right ovary 0.41 and left ovary 0.50. IMPRESSION: Trace fluid in the cervical canal. Cystic structure with septations of the right ovary with a maximum diameter of 2.2 cm probably represents a complex dominant follicle. Otherwise, no evidence of mass or free fluid. Appendix could not be visualized. Electronically Signed by Adam Alvarado MD 02/18/2019 11:30 P
== END ==
LOC: M RAD 09:07
PROVIDERS: ATTEND Internal Medicine Gastroenterology
DX: R10.2 Pelvic and perineal pain (principal); R10.31 Right lower quadrant pain; K76.89 Other specified diseases of liver

== ENCOUNTER → 2019-02-19 | Outpatient (CLI) | payer OTHER ==
[2019-02-19 18:24] LABS: FREE T4 0.86 NG/DL (0.76-1.46); THYROID STIMULATING HORMONE 1.11 uIU/ML (0.358-3.740)
[2019-02-19 18:25] LABS: FOLLICLE STIMULATING HORMONE 10.5 mIU/mL; LUTEINIZING HORMONE 56.4 mIU/mL
== END ==
LOC: M SMT 14:37
PROVIDERS: ATTEND Advanced Practice Midwife
DX: O03.9 Complete or unspecified spontaneous abortion without complication (principal)

== ENCOUNTER → 2019-03-22 | Outpatient (CLI) | payer OTHER | LOC: M LAB 12:39 | PROVIDERS: ATTEND Nurse Practitioner | DX: N91.2 Amenorrhea, unspecified (principal) ==

== ENCOUNTER → 2019-04-23 | Outpatient (CLI) | payer OTHER | LOC: M LAB 08:56 | PROVIDERS: ATTEND Advanced Practice Midwife | DX: O20.0 Threatened abortion (principal); Z3A.00 Weeks of gestation of pregnancy not specified ==

== ENCOUNTER → 2019-04-24 | Outpatient (CLI) | payer OTHER ==
[2019-04-24 14:29] LABS: FOLLICLE STIMULATING HORMONE 2.8 mIU/mL; LUTEINIZING HORMONE 0.5 mIU/mL; PROLACTIN 8.6 NG/ML
== END ==
LOC: M LAB 12:55
PROVIDERS: ATTEND Advanced Practice Midwife
DX: O03.9 Complete or unspecified spontaneous abortion without complication (principal)

== ENCOUNTER → 2019-05-02 | Outpatient (CLI) | payer OTHER | LOC: M LAB 11:49 | PROVIDERS: ATTEND Advanced Practice Midwife | DX: O03.9 Complete or unspecified spontaneous abortion without complication (principal) ==

== ENCOUNTER → 2019-05-09 | Outpatient (CLI) | payer OTHER | LOC: M LAB 14:31 | PROVIDERS: ATTEND Advanced Practice Midwife | DX: O03.9 Complete or unspecified spontaneous abortion without complication (principal) ==

== ENCOUNTER → 2019-05-17 | Outpatient (CLI) | payer OTHER ==
[2019-05-17 10:52] LABS: PROGESTERONE 0.43 NG/ML
[2019-05-17 10:53] LABS: ESTRADIOL 19.3 PG/ML
== END ==
LOC: M LAB 09:30
PROVIDERS: ATTEND Advanced Practice Midwife
DX: O03.9 Complete or unspecified spontaneous abortion without complication (principal)

== ENCOUNTER → 2019-05-23 | Outpatient (CLI) | payer OTHER | LOC: M LAB 11:47 | PROVIDERS: ATTEND Advanced Practice Midwife | DX: O03.9 Complete or unspecified spontaneous abortion without complication (principal) ==

== ENCOUNTER 2020-01-08 03:31 | Emergency (ER) | payer OTHER ==
[~2020-01-08] VITALS: Ht 160 cm; Wt 70.5 kg
[2020-01-08 04:27] LABS: BASO # 0.1 10^3/uL (0.0-0.2); BASO % 0.7 % (0.0-1.0); EOS # 0.1 10^3/uL (0.0-0.5); EOS % 0.8 % (0.0-3.0); HEMATOCRIT 42.4 % (36.0-47.0); HEMOGLOBIN 13.9 g/dl (12.0-15.5); LYMPH # 3.2 10^3/uL (1.5-5.0); LYMPH % 30.6 % (24.0-44.0); MEAN CORPUSCULAR HEMOGLOBIN 30.4 pg (27.0-33.0); MEAN CORPUSCULAR HGB CONC 32.8 g/dl (32.0-36.5); MEAN CORPUSCULAR VOLUME 92.8 fl (80.0-96.0); MONO # 0.6 10^3/uL (0.0-0.8); MONO % 5.8 % (0.0-5.0); NEUTROPHILS # 6.6 10^3/uL (1.5-8.5); NEUTROPHILS % 61.8 % (36.0-66.0); PLATELET COUNT, AUTOMATED 196 10^3/uL (150-450); RED BLOOD COUNT 4.57 10^6/uL (4.00-5.40); WHITE BLOOD COUNT 10.6 10^3/uL (4.0-10.0)
[2020-01-08] MEDS ORDERED: ISOVUE-370 76% 100ML VIAL As Ordered ONE (04:33)
[2020-01-08 04:53] LABS: ALBUMIN 4.1 GM/DL (3.2-5.2); BILIRUBIN,DIRECT 0.1 MG/DL (0.0-0.2); BILIRUBIN,TOTAL 0.5 MG/DL (0.2-1.0); TOTAL PROTEIN 7.8 GM/DL (6.4-8.2)
--- NOTE | 2020-01-08 05:09 | REPVR ---
PROCEDURE INFORMATION: Exam: CT Abdomen And Pelvis With Contrast Exam date and time: 01/08/2020 4:35 AM Age: 29 years old Clinical indication: Abdominal pain; Other: Bloating; Additional info: Abd pain/bloating TECHNIQUE: Imaging protocol: Computed tomography of the abdomen and pelvis with intravenous contrast. Radiation optimization: All CT scans at this facility use at least one of these dose optimization techniques: automated exposure control; mA and/or kV adjustment per patient size (includes targeted exams where dose is matched to clinical indication); or iterative reconstruction. Contrast material: ISO; Contrast volume: 100 ml; Contrast route: INTRAVENOUS (IV); COMPARISON: CT ABD PELVIS WITH CONTRAST 09/13/2018 1:02 PM FINDINGS: Lungs: The visualized portions of the lung bases are normal. Liver: There is an enhancing lesion in the right lobe of the liver, adjacent to the intrahepatic IVC which appears fairly homogeneous except for a central area of lower attenuation. It is unchanged in size and appearance compared to the prior exam, measuring 3.0 x 2.5 cm. There is a 2nd, smaller enhancing lesion further inferiorly in the right lobe of the liver measuring 11 x 8 mm, increased slightly from 10 x 7 mm previously. Gallbladder and bile ducts: The gallbladder is contracted, limiting its assessment. No definite stones identified. There is no biliary ductal dilation. Pancreas: The pancreas is normal with no ductal dilation. Spleen: The spleen is normal. Adrenals: The adrenal glands are normal. Kidneys and ureters: The kidneys are unremarkable. There is no hydronephrosis. The nondilated distal ureters are difficult to trace, but no stones are seen along their expected course. Stomach and bowel: The small bowel appears unremarkable. There is no dilation or thickening of the colon. Appendix: The appendix is difficult to confidently identified but a small structure which probably represents a nonenlarged appendix is noted adjacent to the cecum. Intraperitoneal space: There is no evidence of free intraperitoneal or pelvic fluid. There is no free intraperitoneal air. Vasculature: No aortic aneurysm. Lymph nodes: No lymphadenopathy is seen. Bladder: The bladder is mostly collapsed. No bladder stones are identified. Reproductive: The uterus is unremarkable. Bones/joints: No suspicious osseous lesions. No acute fractures or dislocations. A stable sclerotic lesion in the T12 vertebral body is not suspicious and probably a bone island. Soft tissues: The soft tissues appear unremarkable. IMPRESSION: 1. Enhancing lesion with a central scar in the liver is unchanged in size and appearance and a 2nd more homogeneously enhancing lesion is only slightly larger than on the prior exam of Sep, 2018. Their appearance and stability/relative stability are consistent with benign lesions. No further imaging follow-up recommended. 2. No evidence of obstruction or inflammation of the bowel. Electronically signed by: Courtney Montague On 01/08/2020 05:09:32 AM
[2020-01-08] MEDS ORDERED: SUCR1TA PO (05:52)
[2020-01-08] MEDS ORDERED: OMEP40CA97 PO (05:52)
[2020-01-08 06:00] VITALS: BP 110/62
[2020-01-08] MEDS ORDERED: GI COCKTAIL 50ML BTL(HYOSCYAMINE/MAALOX/LIDOCAINE VISCOUS)(1:3:1) PO ONE (06:00)
== END 2020-01-08 06:15 | disposition home or self-care (01) ==
LOC: M ED 03:31
DX: R10.13 Epigastric pain (principal); K76.89 Other specified diseases of liver; F17.210 Nicotine dependence, cigarettes, uncomplicated; Z79.899 Other long term (current) drug therapy
CPT/HCPCS: 36415; 74177; 80047; 80076; 81001; 84702; 85025; 99284; Q9967

== ENCOUNTER → 2020-02-26 | Outpatient (CLI) | payer OTHER ==
[~2020-02-26] MED LIST changes: +OMEP40CA97 PO; +SUCR1TA PO
--- NOTE | 2020-03-02 11:49 | REP ---
COMPLETE ABDOMINAL ULTRASOUND: CLINICAL: Follow-up liver lesions. TECHNIQUE: Real time chew scale and color evaluation using curved array transducer. COMPARISON: CT 01/08/20, ultrasound 02/15/19. FINDINGS: The larger lesion in the right lobe again appears mildly hypoechoic and measures 3.2 x 2.3 x 2.9cm similar to prior examination and likely representing focal nodular hyperplasia based on appearance on CT examination. The second lesion which was suggested to be a hemangioma within the right lobe is not identified on current examination. Spleen and pancreas are normal in appearance, size and echotexture. The gallbladder is unremarkable and without gallstones, wall thickening or pericholecystic fluid. No biliary ductal dilatation is appreciated and the common bile duct measures 5.0mm diameter. The right kidney is normal in appearance without hydronephrosis and measures 11.1 x 5.4 x 3.8cm. The left kidney measures 11.3 x 5.1 x 4.9cm without hydronephrosis but includes a small 7mm hyperechoic lesion along the lateral aspect which may represent benign angiomyolipoma. No ascites. The abdominal aorta appears normal and measures 1.9cm maximal diameter. IMPRESSION: Liver findings as described above consistent with focal nodular hyperplasia. Second liver lesion is not identified on current examination. MTDD
== END ==
LOC: M RAD 08:36
PROVIDERS: ATTEND Internal Medicine Gastroenterology
DX: K59.09 Other constipation (principal); K76.89 Other specified diseases of liver

== ENCOUNTER → 2020-11-18 | Outpatient (REF) | payer OTHER ==
[~2020-11-18] MED LIST changes: +OMEP40CA4 PO; -OMEP40CA97 PO
[2020-11-18 17:10] LABS: HCG, SERUM QUALITATIVE NEGATIVE (NEGATIVE)
[2020-11-18 17:16] LABS: HCG, SERUM QUANTITATIVE 8 MIU/ML
== END ==
LOC: M LAB REF 15:57
PROVIDERS: ATTEND Physician Assistant
DX: Z32.00 Encounter for pregnancy test, result unknown (principal)

== ENCOUNTER 2020-11-20 17:11 | Emergency (ER) | payer OTHER ==
[~2020-11-20] VITALS: Ht 160 cm; Wt 68.1 kg
[2020-11-20 20:30] LABS: APPEARANCE, URINE CLOUDY (CLEAR); BACTERIA, URINE AUTO NEGATIVE (NEGATIVE); BILIRUBIN, URINE AUTO NEGATIVE (NEGATIVE); BLOOD, URINE BLOOD 3+ (NEGATIVE); COLOR, URINE RED (YELLOW); GLUCOSE, URINE (UA) AUTO NEGATIVE (NEGATIVE); KETONE, URINE AUTO NEGATIVE (NEGATIVE); LEUKOCYTE ESTERASE, URINE AUTO TRACE (NEGATIVE); MUCUS, URINE SMALL (NEGATIVE); NITRITE, URINE AUTO NEGATIVE (NEGATIVE); PROTEIN, URINE AUTO 2+ mg/dL (NEGATIVE); RBC, URINE AUTO TNTC /HPF (0-3); SPECIFIC GRAVITY URINE AUTO 1.023 (1.002-1.035); SQUAMOUS EPITHELIAL CELL UR AU 20 /HPF (0-6); WBC, URINE AUTO 24 /HPF (0-3)
[2020-11-20 21:44] VITALS: BP 118/68
== END 2020-11-20 21:50 | disposition home or self-care (01) ==
LOC: M ED 17:11
DX: N93.9 Abnormal uterine and vaginal bleeding, unspecified (principal); R10.2 Pelvic and perineal pain; F33.9 Major depressive disorder, recurrent, unspecified

== ENCOUNTER → 2021-01-22 | Outpatient (CLI) | payer OTHER | LOC: M LAB 12:39 | PROVIDERS: ATTEND Obstetrics & Gynecology | DX: O20.9 Hemorrhage in early pregnancy, unspecified (principal) ==

== ENCOUNTER → 2021-01-25 | Outpatient (CLI) | payer OTHER | LOC: M LAB 14:26 | PROVIDERS: ATTEND Obstetrics & Gynecology | DX: O20.9 Hemorrhage in early pregnancy, unspecified (principal) ==

== ENCOUNTER → 2021-02-01 | Outpatient (CLI) | payer OTHER | LOC: M LAB 13:33 | PROVIDERS: ATTEND Obstetrics & Gynecology | DX: O20.9 Hemorrhage in early pregnancy, unspecified (principal) ==

== ENCOUNTER → 2021-04-21 | Outpatient (CLI) | payer OTHER ==
[2021-04-21 10:33] LABS: HEMATOCRIT 36.9 % (36.0-47.0); HEMOGLOBIN 11.9 g/dl (12.0-15.5); MEAN CORPUSCULAR HEMOGLOBIN 29.8 pg (27.0-33.0); MEAN CORPUSCULAR HGB CONC 32.2 g/dl (32.0-36.5); MEAN CORPUSCULAR VOLUME 92.3 fl (80.0-96.0); PLATELET COUNT, AUTOMATED 181 10^3/uL (150-450); WHITE BLOOD COUNT 12.3 10^3/uL (4.0-10.0)
[2021-04-21 11:53] LABS: HEPATITIS C VIRUS ABY INDEX 0.1 INDEX (<0.8); HIV 1&2 SCREEN CENTAUR NEGATIVE (NEGATIVE)
== END ==
LOC: M PLALAB 09:16
PROVIDERS: ATTEND Specialist
DX: Z34.01 Encounter for supervision of normal first pregnancy, first trimester (principal); Z3A.00 Weeks of gestation of pregnancy not specified

== ENCOUNTER → 2021-05-19 | Outpatient (REF) | payer OTHER ==
[2021-05-19 20:05] LABS: GC DNA AMPLIFICATION NEGATIVE (NEGATIVE)
== END ==
LOC: M SFHCWAGY 16:52
PROVIDERS: ATTEND Specialist
DX: Z34.82 Encounter for supervision of other normal pregnancy, second trimester (principal); Z3A.16 16 weeks gestation of pregnancy

== ENCOUNTER → 2021-05-19 | Outpatient (CLI) | payer OTHER | LOC: M PLALAB 14:24 | PROVIDERS: ATTEND Obstetrics & Gynecology | DX: O09.512 Supervision of elderly primigravida, second trimester (principal) ==

== ENCOUNTER → 2021-06-16 | Outpatient (REF) | payer OTHER | LOC: M SFHCWAGY 11:07 | PROVIDERS: ATTEND Specialist | DX: N39.0 Urinary tract infection, site not specified (principal) ==

== ENCOUNTER → 2021-07-23 | Outpatient (CLI) | payer OTHER | LOC: M WHC 11:03 | PROVIDERS: ATTEND Obstetrics & Gynecology | DX: Z34.92 Encounter for supervision of normal pregnancy, unspecified, second trimester (principal); Z3A.16 16 weeks gestation of pregnancy ==

== ENCOUNTER → 2021-08-16 | Outpatient (CLI) | payer OTHER ==
[2021-08-16 15:48] LABS: HEMATOCRIT 35.6 % (36.0-47.0); HEMOGLOBIN 11.3 g/dl (12.0-15.5); MEAN CORPUSCULAR HEMOGLOBIN 28.6 pg (27.0-33.0); MEAN CORPUSCULAR HGB CONC 31.7 g/dl (32.0-36.5); MEAN CORPUSCULAR VOLUME 90.1 fl (80.0-96.0); PLATELET COUNT, AUTOMATED 183 10^3/uL (150-450); RED BLOOD COUNT 3.95 10^6/uL (4.00-5.40); WHITE BLOOD COUNT 11.1 10^3/uL (4.0-10.0)
== END ==
LOC: M PLALAB 13:32
PROVIDERS: ATTEND Obstetrics & Gynecology
DX: Z34.92 Encounter for supervision of normal pregnancy, unspecified, second trimester (principal)

== ENCOUNTER → 2021-08-16 | Outpatient (CLI) | payer OTHER | LOC: M WHC 12:20 | PROVIDERS: ATTEND Specialist | DX: Z34.92 Encounter for supervision of normal pregnancy, unspecified, second trimester (principal); Z3A.27 27 weeks gestation of pregnancy ==

== ENCOUNTER → 2021-10-12 | Outpatient (REF) | payer OTHER | LOC: M SFHCWAGY 17:06 | PROVIDERS: ATTEND Obstetrics & Gynecology | DX: Z36.85 Encounter for antenatal screening for Streptococcus B (principal) ==

== ENCOUNTER 2021-10-28 18:37 | Outpatient (CLI) | payer OTHER ==
[~2021-10-28] VITALS: Ht 160 cm; Wt 77.7 kg
[2021-10-28 18:59] VITALS: BP 103/64
[2021-10-28] MEDS ORDERED: PRENTAB9 PO (19:00)
[2021-10-28 19:45] VITALS: BP 116/61
[2021-10-28] MEDS ORDERED: HOME MED LIST COMPLETE! XX SCH (20:30)
[2021-10-28 20:37] VITALS: BP 133/67
[2021-10-28 21:58] VITALS: BP 113/57
== END 2021-10-28 22:36 | disposition home or self-care (01) ==
LOC: M LDO 18:37
PROVIDERS: ATTEND Obstetrics & Gynecology
DX: O60.03 Preterm labor without delivery, third trimester (principal); Z3A.39 39 weeks gestation of pregnancy

== ENCOUNTER 2021-11-01 01:10 | Inpatient (IN) | payer OTHER ==
[~2021-11-01] VITALS: Ht 162.6 cm; Wt 79.0 kg
[2021-11-01] VITALS (58 sets, daily range): BP systolic 80–183; BP diastolic 51–127
[~2021-11-01 01:10] MED LIST changes: +PRENTAB9 PO
[2021-11-01 01:53] LABS: HEMATOCRIT 31.5 % (36.0-47.0); MEAN CORPUSCULAR HEMOGLOBIN 27.2 pg (27.0-33.0); MEAN CORPUSCULAR HGB CONC 31.7 g/dl (32.0-36.5); MEAN CORPUSCULAR VOLUME 85.6 fl (80.0-96.0); RED BLOOD COUNT 3.68 10^6/uL (4.00-5.40); WHITE BLOOD COUNT 11.1 10^3/uL (4.0-10.0)
[2021-11-01] MEDS ORDERED: LR 500 ML IV PRN (02:10)
[2021-11-01] MEDS ORDERED: NALOXONE INJ 0.4MG/1ML VIAL (J2310 PER 1MG) IV PRN (02:10)
[2021-11-01] MEDS ORDERED: ONDANSETRON 4MG 2ML VIAL IV PRN (02:10)
[2021-11-01] MEDS ORDERED: ePHEDrine SULFATE 25 MG/5 ML(5MG/ML) SYRINGE IVP PRN (02:10)
[2021-11-01] MEDS ORDERED: EPIDURAL/PCA KEYS XX PRN (02:10)
[2021-11-01] MEDS ORDERED: diphenhydrAMINE 50MG/ML VIAL (J1200) IV PRN (02:10)
[2021-11-01] MEDS ORDERED: FENTANYL 2MCG/ML ROPIVACAINE 0.2% IN 0.9% NACL 100ML IVBAG As Ordered ONE (02:14)
[2021-11-01] MEDS ORDERED: LR 1,000 ML IV ONE (02:35)
[2021-11-01 02:52] LABS: HEMATOCRIT 30.5 % (36.0-47.0); HEMOGLOBIN 9.4 g/dl (12.0-15.5); MEAN CORPUSCULAR HEMOGLOBIN 26.8 pg (27.0-33.0); MEAN CORPUSCULAR HGB CONC 30.8 g/dl (32.0-36.5); MEAN CORPUSCULAR VOLUME 86.9 fl (80.0-96.0); PLATELET COUNT, AUTOMATED 166 10^3/uL (150-450); RED BLOOD COUNT 3.51 10^6/uL (4.00-5.40); WHITE BLOOD COUNT 11.7 10^3/uL (4.0-10.0)
[2021-11-01] MEDS: LR 1,000 ML IV SCH ×2 (03:40→07:41)
[2021-11-01] MEDS: FENTANYL/ROPIVACAINE/NACL BAG 100 ML EPIDURAL SCH ×2 (04:14→12:34)
[2021-11-01] MEDS ORDERED: OXYTOCIN DRIP 30 UNITS in IV 1 EA IV SCH (05:50)
[2021-11-01] MEDS ORDERED: ANUSOL HC CREAM 30GM TOP PRN (21:00)
[2021-11-01] MEDS ORDERED: MOM 30ML SUSPENSION UDC PO PRN (21:00)
[2021-11-01] MEDS ORDERED: IBUPROFEN 600MG TAB PO PRN (21:00)
[2021-11-01] MEDS ORDERED: METHYLERGONOVINE MALEATE 0.2 MG TAB PO PRN (21:00)
[2021-11-01] MEDS ORDERED: DIBUCAINE 1% OINTMENT 30GM TOP PRN (21:00)
[2021-11-01] MEDS ORDERED: ACETAMINOPHEN TAB 650MG DOSE (2X325MG) PO PRN (21:00)
[2021-11-01] MEDS ORDERED: RHOGAM 300 MCG (1500 IU) INJ (J2790) IM SCH (21:00)
[2021-11-01] MEDS: DOCUSATE SODIUM 100MG CAPSULE PO PRN (22:56)
[2021-11-01] MEDS: IBUPROFEN 800 MG TAB PO PRN (23:02)
[2021-11-01] MEDS: ACETAMINOPHEN 500 MG TAB PO PRN (23:03)
[2021-11-02] MEDS: ACETAMINOPHEN 500 MG TAB PO PRN (04:19)
[2021-11-02 06:05] VITALS: BP 100/53
[2021-11-02] MEDS: PRENATAL VITAMINS CHEWABLE TABLET PO SCH (09:07)
[2021-11-02] MEDS: IBUPROFEN 800 MG TAB PO PRN ×2 (09:08→20:21)
[2021-11-02 18:04] VITALS: BP 113/63
[2021-11-02] MEDS: DOCUSATE SODIUM 100MG CAPSULE PO PRN (20:21)
[2021-11-03] MEDS: ACETAMINOPHEN 500 MG TAB PO PRN (04:36)
[2021-11-03 06:00] VITALS: BP 119/67
[2021-11-03] MEDS ORDERED: MEASLES,MUMPS,RUBELLA VACCINE INJ (MMR-II) (90707) SC.IMMUN ONE (09:00)
[2021-11-03] MEDS: IBUPROFEN 800 MG TAB PO PRN (09:49)
[2021-11-03] MEDS: PRENATAL VITAMINS CHEWABLE TABLET PO SCH (09:49)
== END 2021-11-03 15:36 | disposition home or self-care (01) | DRG 560 ==
LOC: M LDO 01:10 → M LDI 01:15 → M OBS 22:25
PROVIDERS: ADMIT Specialist; ATTEND Specialist
PROC: 10E0XZZ Delivery of Products of Conception, External Approach (ICD-10-PCS; principal; 2021-11-01)
PROC: 0HQ9XZZ Repair Perineum Skin, External Approach (ICD-10-PCS; 2021-11-01)
PROC: 10907ZC Drainage of Amniotic Fluid, Therapeutic from Products of Conception, Via Natural or Artificial Opening (ICD-10-PCS; 2021-11-01)
DX: O98.52 Other viral diseases complicating childbirth (principal); Z37.0 Single live birth; Z3A.39 39 weeks gestation of pregnancy; U07.1 COVID-19; O70.0 First degree perineal laceration during delivery

== ENCOUNTER → 2022-02-09 | Outpatient (REF) | payer OTHER ==
[2022-02-09 22:21] LABS: APPEARANCE, URINE MANUAL CLEAR (CLEAR); COLOR, URINE MANUAL YELLOW (YELLOW)
[2022-02-09 22:22] LABS: BILIRUBIN, URINE MANUAL NEGATIVE (NEGATIVE); BLOOD URINE MANUAL NEGATIVE (NEGATIVE); GLUCOSE, URINE (UA) MANUAL NEGATIVE (NEGATIVE); KETONE, URINE MANUAL NEGATIVE (NEGATIVE); NITRITE, URINE MANUAL NEGATIVE (NEGATIVE); PROTEIN, URINE MANUAL NEGATIVE (NEGATIVE); SPECIFIC GRAVITY,URINE MANUAL 1.015 (1.002-1.035); UROBILINOGEN, URINE MANUAL NORMAL (NORMAL)
[2022-02-09 22:23] LABS: LEUKOCYTE ESTERASE, URINE MAN TRACE (NEGATIVE)
[2022-02-09 22:27] LABS: URINE PREG TEST NEGATIVE (NEGATIVE)
[2022-02-09 22:48] LABS: RBC, URINE 0-1 /hpf (0-3); SQUAMOUS EPITHELIAL CELL URINE MOD AMOUNT /hpf (SMALL AMT)
[2022-02-09 22:49] LABS: AMORPHOUS SEDIMENT, URINE SMALL AMOUNT (NEGATIVE); BACTERIA, URINE SMALL AMOUNT; HYALINE CAST, URINE NONE SEEN /lpf (0-1); MUCUS, URINE MOD AMOUNT (NEGATIVE)
[2022-02-09 23:50] LABS: GC DNA AMPLIFICATION POSITIVE (NEGATIVE)
== END ==
LOC: M LAB REF 21:33
PROVIDERS: ATTEND Physician Assistant
DX: N39.0 Urinary tract infection, site not specified (principal)

== ENCOUNTER → 2025-03-27 | Outpatient (REF) | payer OTHER ==
[~2025-03-27] MED LIST changes: -IBUP-1022 PO; +IBUP600T42 PO
[2025-03-27 18:37] LABS: ALT/SGPT 22 U/L (7.0-40); AST/SGOT 22 U/L (<34); CALCIUM LEVEL 8.8 MG/DL (8.5-10.1); CARBON DIOXIDE LEVEL 25 MMOL/L (20-31); CHLORIDE LEVEL 105 MMOL/L (98-107); CHOLESTEROL LEVEL 164 MG/DL (<200); CHOLESTEROL RISK RATIO 2.73 (<5); CREATININE FOR GFR 0.59 MG/DL (0.55-1.30); GLOMERULAR FILTRATION RATE > 90.0 (>60); LDL CHOLESTEROL 86.9 MG/DL (<100); NON-HDL-C 104.1 MG/DL; POTASSIUM SERUM 3.9 MMOL/L (3.5-5.1); SODIUM LEVEL 141 MMOL/L (136-145); TRIGLYCERIDES LEVEL 86 MG/DL (<150)
[2025-03-27 18:38] LABS: BASO # 0.1 10^3/uL (0.0-0.2); BASO % 0.9 % (0.0-1.0); EOS # 0.1 10^3/uL (0.0-0.5); EOS % 1.3 % (0.0-3.0); LYMPH # 2.1 10^3/uL (1.5-5.0); LYMPH % 27.9 % (24.0-44.0); MONO # 0.4 10^3/uL (0.0-0.8); MONO % 5.0 % (2.0-8.0); NEUTROPHILS # 4.8 10^3/uL (1.5-8.5); NEUTROPHILS % 64.6 % (36.0-66.0); PLATELET COUNT, AUTOMATED 213 10^3/uL (150-450)
[2025-03-27 18:40] LABS: FREE T4 1.04 NG/DL (0.89-1.76)
[2025-03-27 18:52] LABS: ESTIMATED AVERAGE GLUCOSE 105.0 MG/DL (60-110)
== END ==
LOC: M SFHCLERA 17:51
PROVIDERS: ATTEND Student in an Organized Health Care Education/Training Program
DX: Z00.00 Encounter for general adult medical examination without abnormal findings (principal)